=== PATIENT | female | born 1965 | race American Indian/Alaskan Native ===

== ENCOUNTER 2018-08-27 17:22 | Inpatient (IN) | payer MEDICARE ==
[2018-08-27] MEDS ORDERED: ZOFRAN IV ONE (18:07)
[2018-08-27] MEDS ORDERED: NACL 0.9% 1000 ML 1,000 ML IV ONE (18:07)
--- NOTE | 2018-08-27 18:14 | Emergency Department Report ---
Chief Complaint: Syncope Stated Complaint: BLACK OUTS Time Seen by Provider: 08/27/18 18:12 - HPI History of Present Illness: PT REPORTS BLACKING OUT ON SUNDAY- WAKING UP ON SUNDAY SHE WAS ON THE FLOOR OF HER HOME SHE THEN BLACKED OUT YESTERDAY AGAIN PMH HIV HTN ANXIETY DEPRESSION GERD RX ODEFSEY KLONOPIN NORVASC LOSARTAN HCTZ ROS LOC PER PT L SIDE AND R ABD PAIN N/V/D COUGH NO CP VSS WITH MILD TACHYCARDIA ON TRIAGE WILL NEED EVALUATION INCLUDING CT OF HEAD - Exam Vital Signs: Vital Signs 08/27/18 17:27 Temperature 98.2 F Pulse Rate 107 H Respiratory 18 Rate Blood Pressure 139/94 O2 Sat by Pulse 100 Oximetry MSE screening note: Focused history and physical exam performed. Due to findings the following was ordered: ED Disposition for MSE Condition: Stable
[2018-08-27 18:31] LABS: Hematocrit 34.9 % (30.3-42.9); Hemoglobin 11.9 gm/dl (10.1-14.3); Mean Corpuscular HGB Conc 34 % (30-34); Mean Corpuscular Volume 85 fl (79-97); Platelet Count 256 K/mm3 (140-440); Red Blood Count 4.12 M/mm3 (3.65-5.03); Red Cell Distribution Width 15.2 % (13.2-15.2)
[2018-08-27 18:52] LABS: Alanine Aminotransferase 18 units/L (7-56); Albumin 4.3 g/dL (3.9-5); BUN/Creatinine Ratio 21; Blood Urea Nitrogen 21 mg/dL (7-17); Calcium 9.5 mg/dL (8.4-10.2); Hemolysis Index 14
[2018-08-27 18:59] LABS: Bacteria,Urine 1+ /HPF (Negative); Bilirubin,Urine NEG (Negative); Blood,Urine NEG (Negative); Color,Urine Yellow (Yellow); Hyaline Casts,Urine 16 /LPF; Mucus,Urine 1+ /HPF; Protein,Urine <15 mg/dL mg/dL (Negative); Urobilinogen,Urine < 2.0 mg/dL (<2.0)
[2018-08-27 19:08] LABS: INR 0.88 (0.87-1.13)
[2018-08-27 19:25] LABS: Basophils % (Manual) 0 % (0.0-1.8); Eosinophils % (Manual) 0 % (0.0-4.3); Total Cells Counted 100
[2018-08-27 19:26] LABS: Hypochromasia Few; Platelet Estimate Consistent w Auto; Target Cells Few
[2018-08-27] MEDS ORDERED: PEPCID IV ONE (19:50)
[2018-08-27] MEDS ORDERED: K-DUR PO ONE (19:51)
[2018-08-27] MEDS ORDERED: SUBLIMAZE IV ONE (19:52)
--- NOTE | 2018-08-27 19:52 | Emergency Department Report ---
ED General Adult HPI - General Chief complaint: Syncope Stated complaint: BLACK OUTS Time Seen by Provider: 08/27/18 18:12 Source: patient, RN notes reviewed, old records reviewed Mode of arrival: Ambulatory Limitations: No Limitations - History of Present Illness Initial comments: Primary care Dr.: Dr. Almanza Past medical history: HIV, hypertension, does not know CD4 count or viral load, and is currently on highly active antiretroviral therapy. This is a pleasant 52-year-old female who is not known to this provider previously, also has a history of hepatitis C, presents to the ER with multiple complaints. Her first complaint is syncope 2. She reports that she passed out this past weekend, from Sunday to Sunday. She has no recollection of what happened during these few days. She reports that she was on the floor. She reports waking up on Sunday, and then again passing out. She also complains of bilateral upper flank pain, nausea and vomiting. Her last episode of emesis was earlier on today. Her symptoms are intermittent, did not radiate anywhere, did not appear to have exacerbating or factors. In the past week, she denies headache, neck pain, chest pain, hematemesis or bright red blood per rectum. She denies urinary symptoms. 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 She also reports that she feels like her balance has been "off." -: Gradual, Sudden Location: abdomen Consistency: other Improves with: other Worsens with: other Associated Symptoms: confusion, loss of appetite, malaise, nausea/vomiting, syncope. denies: chest pain, cough, diaphoresis, fever/chills, headaches, rash, seizure, shortness of breath, weakness - Related Data Home Medications Medication Instructions Recorded Confirmed Last Taken Emtricitab/Rilpiviri/Tenof Ala 1 each PO DAILY 08/27/18 08/27/18 Unknown [Odefsey Tablet] Ergocalciferol [Vitamin D2] 1 tab PO DAILY 08/27/18 08/27/18 Unknown Losartan [Cozaar] 100 mg PO QDAY 08/27/18 08/27/18 Unknown Potassium Chloride [Klor-Con 10] 1 tab PO DAILY 08/27/18 08/27/18 Unknown clonazePAM [Clonazepam] 1 tab PO BID PRN 08/27/18 08/27/18 Unknown Allergies Allergy/AdvReac Type Severity Reaction Status Date / Time ampicillin Allergy Hives Verified 08/27/18 17:27 shellfish derived Allergy Swelling Verified 08/27/18 17:27 ED Review of Systems ROS: Stated complaint: BLACK OUTS Other details as noted in HPI Constitutional: malaise, weakness. denies: fever Eyes: denies: eye discharge ENT: denies: epistaxis Respiratory: denies: cough Cardiovascular: syncope Gastrointestinal: abdominal pain, nausea, vomiting Genitourinary: denies: dysuria Musculoskeletal: arthralgia, myalgia Skin: denies: lesions Neurological: abnormal gait Psychiatric: anxiety ED Past Medical Hx - Past Medical History Hx Hypertension: Yes Hx HIV: Yes - Social History Smoking Status: Current Every Day Smoker Substance Use Type: Alcohol - Medications Home Medications: Home Medications Medication Instructions Recorded Confirmed Last Taken Type Emtricitab/Rilpiviri/Tenof Ala 1 each PO DAILY 08/27/18 08/27/18 Unknown History [Odefsey Tablet] Ergocalciferol [Vitamin D2] 1 tab PO DAILY 08/27/18 08/27/18 Unknown History Losartan [Cozaar] 100 mg PO QDAY 08/27/18 08/27/18 Unknown History Potassium Chloride [Klor-Con 10] 1 tab PO DAILY 08/27/18 08/27/18 Unknown History clonazePAM [Clonazepam] 1 tab PO BID PRN 08/27/18 08/27/18 Unknown History ED Physical Exam - General Limitations: Physical Limitation General appearance: alert, in no apparent distress - Head Head exam: Present: atraumatic, normocephalic - Eye Eye exam: Present: normal appearance, PERRL, EOMI, other (visual acuity intact to finger counting, color perception, reading at a close distance). Absent: nystagmus - ENT ENT exam: Present: normal exam, normal orophraynx, mucous membranes moist, normal external ear exam - Neck Neck exam: Present: normal inspection, full ROM. Absent: tenderness, meningismus - Respiratory Respiratory exam: Present: normal lung sounds bilaterally. Absent: respiratory distress - Cardiovascular Cardiovascular Exam: Present: normal rhythm, tachycardia, normal heart sounds. Absent: systolic murmur, diastolic murmur, rubs, gallop - GI/Abdominal GI/Abdominal exam: Present: soft, tenderness. Absent: distended, guarding, rebound, rigid, pulsatile mass - Extremities Exam Extremities exam: Present: normal inspection, full ROM. Absent: pedal edema, joint swelling, calf tenderness - Back Exam Back exam: Present: normal inspection, full ROM. Absent: tenderness, CVA tenderness (R), paraspinal tenderness, vertebral tenderness - Neurological Exam Neurological exam: Present: alert, oriented X3, CN II-XII intact, motor sensory deficit (there is 4 out of 5 strength left lower extremity. There is decreased sensation to light touch left lower extremity.) - Psychiatric Psychiatric exam: Present: normal affect, normal mood, anxious - Skin Skin exam: Present: warm, dry, intact, normal color. Absent: rash ED Course Vital Signs 08/27/18 08/27/18 08/27/18 17:27 20:10 21:26 Temperature 98.2 F 98.5 F Pulse Rate 107 H Respiratory 18 15 15 Rate Blood Pressure 139/94 Blood Pressure 150/97 [Left] O2 Sat by Pulse 100 100 Oximetry ED Medical Decision Making - Lab Data Result diagrams: 08/27/18 18:10 08/27/18 18:10 Vital Signs 08/27/18 08/27/18 08/27/18 17:27 20:10 21:26 Temperature 98.2 F 98.5 F Pulse Rate 107 H Respiratory 18 15 15 Rate Blood Pressure 139/94 Blood Pressure 150/97 [Left] O2 Sat by Pulse 100 100 Oximetry Lab Results 08/27/18 08/27/18 08/27/18 Range/Units 18:10 18:10 18:20 WBC 10.6 (4.5-11.0) K/mm3 RBC 4.12 (3.65-5.03) M/mm3 Hgb 11.9 (10.1-14.3) gm/dl Hct 34.9 (30.3-42.9) % MCV 85 (79-97) fl MCH 29 (28-32) pg MCHC 34 (30-34) % RDW 15.2 (13.2-15.2) % Plt Count 256 (140-440) K/mm3 Lymph # Pulp Drier Firer Add Manual Diff Complete Total Counted 100 Seg Neuts % (Manual) 46.0 (40.0-70.0) % Band Neutrophils % 0 % Lymphocytes % (Manual) 46.0 H (13.4-35.0) % Reactive Lymphs % (Man) 5.0 % Monocytes % (Manual) 3.0 (0.0-7.3) % Eosinophils % (Manual) 0 (0.0-4.3) % Basophils % (Manual) 0 (0.0-1.8) % Metamyelocytes % 0 % Myelocytes % 0 % Promyelocytes % 0 % Blast Cells % 0 % Nucleated RBC % Not Reportable Seg Neutrophils # Man 4.9 (1.8-7.7) K/mm3 Band Neutrophils # 0.0 K/mm3 Lymphocytes # (Manual) 4.9 (1.2-5.4) K/mm3 Abs React Lymphs (Man) 0.5 K/mm3 Monocytes # (Manual) 0.3 (0.0-0.8) K/mm3 Eosinophils # (Manual) 0.0 (0.0-0.4) K/mm3 Basophils # (Manual) 0.0 (0.0-0.1) K/mm3 Metamyelocytes # 0.0 K/mm3 Myelocytes # 0.0 K/mm3 Promyelocytes # 0.0 K/mm3 Blast Cells # 0.0 K/mm3 WBC Morphology Not Reportable Hypersegmented Neuts Not Reportable Hyposegmented Neuts Not Reportable Hypogranular Neuts Not Reportable Smudge Cells Not Reportable Toxic Granulation Not Reportable Toxic Vacuolation Not Reportable Dohle Bodies Not Reportable Pelger-Huet Anomaly Not Reportable Melissa Rods Not Reportable Platelet Estimate Consistent w auto Clumped Platelets Not Reportable Plt Clumps, EDTA Not Reportable Large Platelets Not Reportable Giant Platelets Not Reportable Platelet Satelliting Not Reportable Plt Morphology Comment Not Reportable RBC Morphology Not Reportable Dimorphic RBCs Not Reportable Polychromasia Not Reportable Hypochromasia Few Poikilocytosis Not Reportable Anisocytosis Not Reportable Microcytosis Not Reportable Macrocytosis Not Reportable Spherocytes Not Reportable Pappenheimer Bodies Not Reportable Sickle Cells Not Reportable Target Cells Few Tear Drop Cells Not Reportable Ovalocytes Not Reportable Helmet Cells Not Reportable Aden-[place] Bodies Not Reportable [place] Rings Not Reportable [place] Cells Not Reportable Bite Cells Not Reportable Crenated Cell Not Reportable Elliptocytes Not Reportable Acanthocytes (Spur) Not Reportable Rouleaux Not Reportable Hemoglobin C Crystals Not Reportable Schistocytes Not Reportable Malaria parasites Not Reportable Joseph Bodies Not Reportable Hem Pathologist Commnt No PT (12.2-14.9) Sec. INR (0.87-1.13) Sodium 140 (137-145) mmol/L Potassium 3.0 L (3.6-5.0) mmol/L Chloride 101.0 (98-107) mmol/L Carbon Dioxide 24 (22-30) mmol/L Anion Gap 18 mmol/L BUN 21 H (7-17) mg/dL Creatinine 1.0 (0.7-1.2) mg/dL Estimated GFR > 60 ml/min BUN/Creatinine Ratio 21 % Glucose 91 (65-100) mg/dL Calcium 9.5 (8.4-10.2) mg/dL Magnesium 1.80 (1.7-2.3) mg/dL Total Bilirubin 0.30 (0.1-1.2) mg/dL AST 15 (5-40) units/L ALT 18 (7-56) units/L Alkaline Phosphatase 99 (35-129) units/L Total Creatine Kinase 118 (30-135) units/L Troponin T < 0.010 (0.00-0.029) ng/mL Total Protein 7.9 (6.3-8.2) g/dL Albumin 4.3 (3.9-5) g/dL Albumin/Globulin Ratio 1.2 % Lipase 28 (13-60) units/L Urine Color Yellow (Yellow) Urine Turbidity Clear (Clear) Urine pH 6.0 (5.0-7.0) Ur Specific [place] 1.019 (1.003-1.030) Urine Protein <15 mg/dl (Negative) mg/dL Urine Glucose (UA) Neg (Negative) mg/dL Urine Ketones Neg (Negative) mg/dL Urine Blood Neg (Negative) Urine Nitrite Neg (Negative) Urine Bilirubin Neg (Negative) Urine Urobilinogen < 2.0 (<2.0) mg/dL Ur Leukocyte Esterase Neg (Negative) Urine WBC (Auto) 2.0 (0.0-6.0) /HPF Urine RBC (Auto) 3.0 (0.0-6.0) /HPF U Epithel Cells (Auto) 2.0 (0-13.0) /HPF Urine Bacteria (Auto) 1+ (Negative) /HPF Hyaline Casts 16 /LPF Urine Mucus 1+ /HPF 08/27/18 08/27/18 Range/Units 18:43 20:02 WBC (4.5-11.0) K/mm3 RBC (3.65-5.03) M/mm3 Hgb (10.1-14.3) gm/dl Hct (30.3-42.9) % MCV (79-97) fl MCH (28-32) pg MCHC (30-34) % RDW (13.2-15.2) % Plt Count (140-440) K/mm3 Lymph # Add Manual Diff Total Counted Seg Neuts % (Manual) (40.0-70.0) % Band Neutrophils % % Lymphocytes % (Manual) (13.4-35.0) % Reactive Lymphs % (Man) % Monocytes % (Manual) (0.0-7.3) % Eosinophils % (Manual) (0.0-4.3) % Basophils % (Manual) (0.0-1.8) % Metamyelocytes % % Myelocytes % % Promyelocytes % % Blast Cells % % Nucleated RBC % Seg Neutrophils # Man (1.8-7.7) K/mm3 Band Neutrophils # K/mm3 Lymphocytes # (Manual) (1.2-5.4) K/mm3 Abs React Lymphs (Man) K/mm3 Monocytes # (Manual) (0.0-0.8) K/mm3 Eosinophils # (Manual) (0.0-0.4) K/mm3 Basophils # (Manual) (0.0-0.1) K/mm3 Metamyelocytes # K/mm3 Myelocytes # K/mm3 Promyelocytes # K/mm3 Blast Cells # K/mm3 WBC Morphology Hypersegmented Neuts Hyposegmented Neuts Hypogranular Neuts Smudge Cells Toxic Granulation Toxic Vacuolation Dohle Bodies Pelger-Huet Anomaly Melissa Rods Platelet Estimate Clumped Platelets Plt Clumps, EDTA Large Platelets Giant Platelets Platelet Satelliting Plt Morphology Comment RBC Morphology Dimorphic RBCs Polychromasia Hypochromasia Poikilocytosis Anisocytosis Microcytosis Macrocytosis Spherocytes Pappenheimer Bodies Sickle Cells Target Cells Tear Drop Cells Ovalocytes Helmet Cells Aden-[place]minence Bodies [place] Rings [place] Cells Bite Cells Crenated Cell Elliptocytes Acanthocytes (Spur) Rouleaux Hemoglobin C Crystals Schistocytes Malaria parasites Joseph Bodies Hem Pathologist Commnt PT 12.3 (12.2-14.9) Sec. INR 0.88 (0.87-1.13) Sodium (137-145) mmol/L Potassium (3.6-5.0) mmol/L Chloride (98-107) mmol/L Carbon Dioxide (22-30) mmol/L Anion Gap mmol/L BUN (7-17) mg/dL Creatinine (0.7-1.2) mg/dL Estimated GFR ml/min BUN/Creatinine Ratio % Glucose (65-100) mg/dL Calcium (8.4-10.2) mg/dL Magnesium (1.7-2.3) mg/dL Total Bilirubin (0.1-1.2) mg/dL AST (5-40) units/L ALT (7-56) units/L Alkaline Phosphatase (35-129) units/L Total Creatine Kinase 114 (30-135) units/L Troponin T (0.00-0.029) ng/mL Total Protein (6.3-8.2) g/dL Albumin (3.9-5) g/dL Albumin/Globulin Ratio % Lipase (13-60) units/L Urine Color (Yellow) Urine Turbidity (Clear) Urine pH (5.0-7.0) Ur Specific [place] (1.003-1.030) Urine Protein (Negative) mg/dL Urine Glucose (UA) (Negative) mg/dL Urine Ketones (Negative) mg/dL Urine Blood (Negative) Urine Nitrite (Negative) Urine Bilirubin (Negative) Urine Urobilinogen (<2.0) mg/dL Ur Leukocyte Esterase (Negative) Urine WBC (Auto) (0.0-6.0) /HPF Urine RBC (Auto) (0.0-6.0) /HPF U Epithel Cells (Auto) (0-13.0) /HPF Urine Bacteria (Auto) (Negative) /HPF Hyaline Casts /LPF Urine Mucus /HPF - EKG Data -: EKG Interpreted by In EKG shows normal: sinus rhythm Rate: tachycardia - EKG Data When compared to previous EKG there are: previous EKG unavailable 08/27/18 22:27 Sinus tachycardia, 104 bpm, normal axis, QTC prolonged, poor R-wave progression, atrial enlargement, abnormal EKG, not consistent with ST elevation myocardial infarction. - Radiology Data Radiology results: pending, report reviewed, image reviewed Noncontrast CT scan of the brain negative for acute disease. Chronic findings noted. CT scan of the chest is negative. CT scan abdomen pelvis negative for acute disease. - Medical Decision Making Differential diagnosis, including but not limited to: Orthostasis, vagal event, structural cardiac disease, pulmonary embolus, acute coronary syndrome, electr olyte derangement, subacute stroke, intra-abdominal infection, obstruction, enteritis Assessment and plan: 52-year-old female who endorses syncope 2, is tachycardic, HIV-positive, with upper quadrant abdominal pain. Laboratory studies show hypokalemia, otherwise unremarkable. He is incidentally noted to have left leg weakness and numbness, and the patient does not know her last known well time. She is therefore not a TPA candidate. In addition, as she is not able to give her last known well time, and has undifferentiated syncope and abdominal pain, does not meet criteria for emergent CT angiogram to assess head and neck, but did require CT angiogram to exclude pulmonary embolus, as well as intra- abdominal pathology. No pulmonary embolus was identified, and CT scan of abdomen and pelvis was negative for acute disease. The patient was given potassium repletion, IV fluids, supportive care and control, and she will also be given aspirin. Case is presented to the Hospital physician, Dr. Ho, who accepted the patient for further evaluation for subacute stroke, as well as unexplained syncope. Critical care attestation.: If time is entered above; I have spent that time in minutes in the direct care of this critically ill patient, excluding procedure time. ED Disposition Clinical Impression: Syncope, Left leg weakness, Abdominal pain Disposition: [id number] OP ADMIT IP TO THIS HOSP Is pt being admited?: Yes Does the pt Need Aspirin: Yes Condition: Stable Instructions: Syncope (ED) Referrals: PRIMARY CARE, [Primary Care Provider] - 3-5 Days - Assessment Assessment Interval: Baseline - Level of Consciousness 1a. Level of Consciousness: alert/keenly responsive - LOC Questions 1b. LOC Questions: answers both correctly - LOC Command 1c. LOC Commands: performs tasks correctly - Best Gaze 2. Best Gaze: normal - Visual 3. Visual: no visual loss - Facial Palsy 4. Facial Palsy: normal symmetrical movement - Motor Arm 5b. Motor Arm Right: no drift 5a. Motor Arm Left: no drift - Motor Leg 6b. Motor Leg Right: no drift 6a. Motor Leg Left: some gravity effort - Limb Ataxia 7. Limb Ataxia: absent - Sensory 8. Sensory: mild/moderate sensory loss - Best Language 9. Best Language: no aphasia - Dysarthria 10. Dysarthria: normal - Extinction and Inattention 11. Extinction/Inattention: no abnormality - Scoring Total Score: 3 Stroke Severity: Minor Stroke
[2018-08-27] MEDS: KCL 10MEQ/100ML 10 MEQ/100 ML BAG IV SCH ×3 (21:00→23:46)
--- NOTE | 2018-08-27 21:16 | Cat Scan Report ---
FINAL REPORT PROCEDURE: CT head without contrast. TECHNIQUE: Computerized tomography of the head was performed without contrast material. HISTORY: Blackouts. COMPARISON: No prior studies are available for comparison. FINDINGS: The ventricles are normal in size. There is minimal evidence of chronic ischemic white matter disease . There is a small focal area of low attenuation located laterally in the left frontal lobe. This nick ws no mass-effect and is consistent with encephalomalacia. It suggests a previous stroke. Clinical co rrelation is recommended. There are no mass lesions. There is no intracranial hemorrhage. The calvari um appears intact. The mastoid air cells and paranasal sinuses are clear as far as visualized. IMPRESSION: Probable small area of encephalomalacia in the left frontal lobe consistent with an old stroke. Clini sita correlation recommended.
--- NOTE | 2018-08-27 21:31 | Cat Scan Report ---
FINAL REPORT PROCEDURE: CT angiogram chest with contrast. TECHNIQUE: Computerized tomographic angiography of the chest was performed after the IV injection of iodinated nonionic contrast including image processing. The image data was postprocessed using 2-dim ensional multiplanar reformatted (MPR) and 3-dimensional (MIP and/or volume rendered) techniques. HISTORY: Tachycardia, syncope. COMPARISON: No prior studies are available for comparison. FINDINGS: The trachea and central bronchi appear normal. The lungs are clear and well expanded. There are no pl eural effusions. The thoracic aorta has a normal caliber without evidence of dissection. The pulmonar y arteries enhance normally. There are no signs of pulmonary embolism. There is no mediastinal adenop athy. The heart size is normal. The adrenal glands are not enlarged. The thoracic skeleton appears in tact. IMPRESSION: Normal study.
--- NOTE | 2018-08-27 21:43 | Cat Scan Report ---
FINAL REPORT PROCEDURE: CT abdomen and pelvis with contrast. TECHNIQUE: Computerized axial tomography of the abdomen and pelvis was performed after the IV inject ion of iodinated nonionic contrast. HISTORY: Tachycardia, syncope, abdominal pain. COMPARISON: No prior studies are available for comparison. FINDINGS: The lung bases are clear. There are no pleural effusions. The heart size is normal. The liver, pancre as and spleen appear normal. There is probably a tiny cyst in the right lobe of the liver. Cholecyste ctomy clips are present. There is no biliary dilatation. The adrenal glands are not enlarged. Both ki dneys appear normal in size and configuration. The abdominal aorta has a normal caliber. There is no retroperitoneal adenopathy. The unopacified gastrointestinal tract is unremarkable. The appendix has probably been removed. The bladder is unremarkable. The uterus has been removed. The regional skeleto n appears intact. There is a tiny umbilical hernia containing fat. IMPRESSION: Previous cholecystectomy and hysterectomy. Probable previous appendectomy. No evidence of acute disea se in the abdomen or pelvis.
[2018-08-27] MEDS ORDERED: BABY ASPIRIN PO ONE (22:30)
[2018-08-27] MEDS ORDERED: TYLENOL PO PRN (23:11)
[2018-08-27] MEDS ORDERED: ZOFRAN IV PRN (23:11)
[2018-08-27] MEDS ORDERED: DULCOLAX PR PRN (23:11)
[2018-08-27] MEDS ORDERED: APRESOLINE IV PRN (23:11)
[2018-08-27] MEDS ORDERED: MILK OF MAGNESIA PO PRN (23:11)
[2018-08-27] MEDS ORDERED: SODIUM CHLORIDE FLUSH SYRINGE 10 ML IV PRN (23:11)
--- NOTE | 2018-08-27 23:15 | History and Physical Report ---
History of Present Illness Date of examination: 08/27/18 History of present illness: 52-year-old male with a history of schizophrenia, hypertension, depression, IBS, HIV, hepatitis C comes to the emergency room because she passed out on Sunday and did not wake up until Sunday. Patient states she was on her way into the kitchen when she passed out. Also complaining of left-sided weakness 2 weeks. Review of systems Constitutional: no weight loss, chills, fever Ears, eyes, nose, mouth and throat: no nasal congestion, no nasal discharge, no sinus pressure, no vision change, no red eye. Neck: No neck pain or rigidity. Cardiovascular: no palpitations, chest pain Respiratory: no cough, shortness of breath Gastrointestinal: no hematochezia, abdominal pain Genitourinary : no frequency , no hematuria Musculoskeletal: no joint swelling or muscle ache Integumentary: no rash, no pruritis Neurological: no parathesias Endocrine: no cold or heat intolerance, no polyuria or polydipsia Hematologic/Lymphatic: no easy bruising, no easy bleeding, no gland swelling Allergic/Immunologic: no urticaria, no angioedema. PAST MEDICAL HISTORY: schizophrenia, hypertension, depression, IBS, HIV, hepatitis C PAST SURGICAL HISTORY: Cholecystectomy, appendectomy, hysterectomy, sinus surge ry SOCIAL HISTORY: Denies drugs, +tobacco, +alcohol FAMILY HISTORY: Hypertension Medications and Allergies Allergies Allergy/AdvReac Type Severity Reaction Status Date / Time ampicillin Allergy Hives Verified 08/27/18 17:27 shellfish derived Allergy Swelling Verified 08/27/18 17:27 Home Medications Medication Instructions Recorded Confirmed Last Taken Type Emtricitab/Rilpiviri/Tenof Ala 1 each PO DAILY 08/27/18 08/27/18 Unknown History [Odefsey Tablet] Ergocalciferol [Vitamin D2] 1 tab PO DAILY 08/27/18 08/27/18 Unknown History Losartan [Cozaar] 100 mg PO QDAY 08/27/18 08/27/18 Unknown History Potassium Chloride [Klor-Con 10] 1 tab PO DAILY 08/27/18 08/27/18 Unknown History clonazePAM [Clonazepam] 1 tab PO BID PRN 08/27/18 08/27/18 Unknown History Active Meds: Active Medications Potassium Chloride (Kcl 10meq/100ml) 10 meq in 100 mls @ 100 mls/hr IV Q1H DARINEL Stop: 08/27/18 23:59 Last Admin: 08/27/18 22:11 Dose: 100 mls/hr Documented by: Exam - Physical Exam Narrative exam: General Apperance: The patient lying in bed, breathing comfortable HEENT: Normocephalic, atraumatic. Pupils equally round and reactive to light, EOMI, no sclericterus or JVD or thyromegaly or nodule. , no carotid bruit, mucous membranes moist, no exudate or erythema Heart: S1-S2, regular is rhythm Lungs: Clear to auscultation bilaterally, breathing comfortable Abdomen: Positive bowel sounds, soft, nontender, nondistended, no organomegaly Extremities: No edema cyanosis clubbing Skin: no rash, nodule, warm and dry Neuro: cranial nerves 2-12 intact, speech is fluent, motor on the left side, 4 over 5, otherwise intact, sensory intact - Constitutional Vitals: Temp Pulse Resp BP Pulse Ox 98.5 F 107 H 15 150/97 100 08/27/18 21:26 08/27/18 17:27 08/27/18 21:26 08/27/18 21:26 08/27/18 21:26 Results - Labs CBC & Chem 7: 08/27/18 18:10 08/27/18 18:10 Labs: Abnormal lab results 08/27/18 08/27/18 Range/Units 18:10 18:10 Lymphocytes % (Manual) 46.0 H (13.4-35.0) % Potassium 3.0 L (3.6-5.0) mmol/L BUN 21 H (7-17) mg/dL - Imaging and Cardiology CT scan - abdomen: report reviewed CT scan - chest: report reviewed CT Scan - head: report reviewed CT scan - pelvis: report reviewed Assessment and Plan Assessment Subacute CVA Syncope Hypertension Depression Schizophrenia HIV Hepatitis C Plan Admit to medicine Do neurochecks, obtain MRI, carotid Doppler, echo Check cardiac enzymes, utox, consult neurology, cardiology Consult physical and occupational therapy Start aspirin, statin IV hydralazine for blood pressure control DVT prophylaxis
[2018-08-27] MEDS ORDERED: KCL 10MEQ/100ML 10 MEQ/100 ML BAG IV ONE (23:46)
[2018-08-28 00:28] LABS: Creatine Kinase MB 1.7 ng/mL (0.0-4.0)
[2018-08-28] MEDS: AMBIEN PO PRN ×2 (01:59→21:10)
[2018-08-28] MEDS: KCL 10MEQ/100ML 10 MEQ/100 ML BAG IV SCH (02:12)
[2018-08-28 04:48] LABS: Amphetamine Screen,Urine PRESUMPTIVE NEGATIVE; Benzodiazepines Screen,Urine PRESUMPTIVE NEGATIVE; Methadone Screen,Urine PRESUMPTIVE NEGATIVE; Opiate Screen,Urine PRESUMPTIVE NEGATIVE
[2018-08-28 05:03] LABS: Cannabinoid Screen,Urine PRESUMPTIVE POSITIVE; Cocaine Screen,Urine PRESUMPTIVE POSITIVE
[2018-08-28 06:58] LABS: Creatine Kinase MB 1.7 ng/mL (0.0-4.0)
[2018-08-28 07:24] LABS: Chol/HDL Ratio 3.02 %
[2018-08-28] MEDS ORDERED: LOVENOX SUB-Q SCH (10:00)
[2018-08-28] MEDS ORDERED: VITAMIN D2 PO SCH (10:00)
[2018-08-28] MEDS ORDERED: NON-FORMULARY (Emtricitab/Rilpiviri/Tenof Ala [Odefsey Tablet] 1 EACH) PO SCH (10:00)
--- NOTE | 2018-08-28 10:14 | Vascular Lab Report ---
FINAL REPORT EXAM: VL CAROTID DUPLEX BILAT HISTORY: stroke TECHNIQUE: Carotid duplex Doppler ultrasound. PRIORS: None. FINDINGS: There are mild atherosclerotic changes bilaterally. There is no elevation in flow velocity indicate a hemodynamically significant stenosis. Specifically, findings correspond to stenosis of less than 50 percent. Vertebral artery flow is antegrade. IMPRESSION: Mild atherosclerotic findings. No findings of a hemodynamically significant stenosis.
--- NOTE | 2018-08-28 10:17 | Progress Note ---
Assessment and Plan Assessment and plan: Subacute CVA. CVA workup in progress. Continue aspirin and statin. Neurology consultation pending. PT/OT. CT scan of the head reveals small area of encephalomalacia in the left frontal lobe consistent with old CVA Syncope. Follow-up MRI, carotid Doppler and echocardiogram. Hypertension. Continue antihypertensive medications. HIV. Continue antiretrovirals Hepatitis C. Schizophrenia. Depression. Continue Klonopin History Interval history: No new issues overnight Hospitalist Physical - Constitutional Vitals: Temp Pulse Resp BP Pulse Ox 98.6 F 81 17 134/76 100 08/28/18 04:46 08/28/18 06:13 08/28/18 04:46 08/28/18 04:46 08/28/18 04:46 General appearance: Present: no acute distress, well-nourished - EENT Eyes: Present: PERRL, EOM intact ENT: hearing intact, clear oral mucosa, dentition normal - Neck Neck: Present: supple, normal ROM - Respiratory Respiratory effort: normal Respiratory: bilateral: CTA - Cardiovascular Rhythm: regular Heart Sounds: Present: S1 & S2. Absent: gallop, rub - Extremities Extremities: no ischemia, No edema, Full ROM - Abdominal General gastrointestinal: soft, non-tender, non-distended, normal bowel sounds - Integumentary Integumentary: Present: clear, warm, dry - Neurologic Neurologic: CNII-XII intact, moves all extremities Results - Labs CBC & Chem 7: 08/27/18 18:10 08/27/18 18:10 Labs: Laboratory Last Values WBC 10.6 K/mm3 (4.5-11.0) 08/27/18 18:10 RBC 4.12 M/mm3 (3.65-5.03) 08/27/18 18:10 Hgb 11.9 gm/dl (10.1-14.3) 08/27/18 18:10 Hct 34.9 % (30.3-42.9) 08/27/18 18:10 MCV 85 fl (79-97) 08/27/18 18:10 MCH 29 pg (28-32) 08/27/18 18:10 MCHC 34 % (30-34) 08/27/18 18:10 RDW 15.2 % (13.2-15.2) 08/27/18 18:10 Plt Count 256 K/mm3 (140-440) 08/27/18 18:10 Lymph # Feedmobile Driver 08/27/18 18:10 Add Manual Diff Complete 08/27/18 18:10 Total Counted 100 08/27/18 18:10 Seg Neuts % (Manual) 46.0 % (40.0-70.0) 08/27/18 18:10 Band Neutrophils % 0 % 08/27/18 18:10 Lymphocytes % (Manual) 46.0 % (13.4-35.0) H 08/27/18 18:10 Reactive Lymphs % (Man) 5.0 % 08/27/18 18:10 Monocytes % (Manual) 3.0 % (0.0-7.3) 08/27/18 18:10 Eosinophils % (Manual) 0 % (0.0-4.3) 08/27/18 18:10 Basophils % (Manual) 0 % (0.0-1.8) 08/27/18 18:10 Metamyelocytes % 0 % 08/27/18 18:10 Myelocytes % 0 % 08/27/18 18:10 Promyelocytes % 0 % 08/27/18 18:10 Blast Cells % 0 % 08/27/18 18:10 Nucleated RBC % Not Reportable 08/27/18 18:10 Seg Neutrophils # Man 4.9 K/mm3 (1.8-7.7) 08/27/18 18:10 Band Neutrophils # 0.0 K/mm3 08/27/18 18:10 Lymphocytes # (Manual) 4.9 K/mm3 (1.2-5.4) 08/27/18 18:10 Abs React Lymphs (Man) 0.5 K/mm3 08/27/18 18:10 Monocytes # (Manual) 0.3 K/mm3 (0.0-0.8) 08/27/18 18:10 Eosinophils # (Manual) 0.0 K/mm3 (0.0-0.4) 08/27/18 18:10 Basophils # (Manual) 0.0 K/mm3 (0.0-0.1) 08/27/18 18:10 Metamyelocytes # 0.0 K/mm3 08/27/18 18:10 Myelocytes # 0.0 K/mm3 08/27/18 18:10 Promyelocytes # 0.0 K/mm3 08/27/18 18:10 Blast Cells # 0.0 K/mm3 08/27/18 18:10 WBC Morphology Not Reportable 08/27/18 18:10 Hypersegmented Neuts Not Reportable 08/27/18 18:10 Hyposegmented Neuts Not Reportable 08/27/18 18:10 Hypogranular Neuts Not Reportable 08/27/18 18:10 Smudge Cells Not Reportable 08/27/18 18:10 Toxic Granulation Not Reportable 08/27/18 18:10 Toxic Vacuolation Not Reportable 08/27/18 18:10 Dohle Bodies Not Reportable 08/27/18 18:10 Pelger-Huet Anomaly Not Reportable 08/27/18 18:10 Melissa Rods Not Reportable 08/27/18 18:10 Platelet Estimate Consistent w auto 08/27/18 18:10 Clumped Platelets Not Reportable 08/27/18 18:10 Plt Clumps, EDTA Not Reportable 08/27/18 18:10 Large Platelets Not Reportable 08/27/18 18:10 Giant Platelets Not Reportable 08/27/18 18:10 Platelet Satelliting Not Reportable 08/27/18 18:10 Plt Morphology Comment Not Reportable 08/27/18 18:10 RBC Morphology Not Reportable 08/27/18 18:10 Dimorphic RBCs Not Reportable 08/27/18 18:10 Polychromasia Not Reportable 08/27/18 18:10 Hypochromasia Few 08/27/18 18:10 Poikilocytosis Not Reportable 08/27/18 18:10 Anisocytosis Not Reportable 08/27/18 18:10 Microcytosis Not Reportable 08/27/18 18:10 Macrocytosis Not Reportable 08/27/18 18:10 Spherocytes Not Reportable 08/27/18 18:10 Pappenheimer Bodies Not Reportable 08/27/18 18:10 Sickle Cells Not Reportable 08/27/18 18:10 Target Cells Few 08/27/18 18:10 Tear Drop Cells Not Reportable 08/27/18 18:10 Ovalocytes Not Reportable 08/27/18 18:10 Helmet Cells Not Reportable 08/27/18 18:10 [place] Bodies Not Reportable 08/27/18 18:10 Center Rings Not Reportable 08/27/18 18:10 [place] Cells Not Reportable 08/27/18 18:10 Bite Cells Not Reportable 08/27/18 18:10 Crenated Cell Not Reportable 08/27/18 18:10 Elliptocytes Not Reportable 08/27/18 18:10 Acanthocytes (Spur) Not Reportable 08/27/18 18:10 Rouleaux Not Reportable 08/27/18 18:10 Hemoglobin C Crystals Not Reportable 08/27/18 18:10 Schistocytes Not Reportable 08/27/18 18:10 Malaria parasites Not Reportable 08/27/18 18:10 Joseph Bodies Not Reportable 08/27/18 18:10 Hem Pathologist Commnt No 08/27/18 18:10 PT 12.3 Sec. (12.2-14.9) 08/27/18 18:43 INR 0.88 (0.87-1.13) 08/27/18 18:43 Sodium 140 mmol/L (137-145) 08/27/18 18:10 Potassium 3.0 mmol/L (3.6-5.0) L 08/27/18 18:10 Chloride 101.0 mmol/L (98-107) 08/27/18 18:10 Carbon Dioxide 24 mmol/L (22-30) 08/27/18 18:10 Anion Gap 18 mmol/L 08/27/18 18:10 BUN 21 mg/dL (7-17) H 08/27/18 18:10 Creatinine 1.0 mg/dL (0.7-1.2) 08/27/18 18:10 Estimated GFR > 60 ml/min 08/27/18 18:10 BUN/Creatinine Ratio 21 % 08/27/18 18:10 Glucose 91 mg/dL (65-100) 08/27/18 18:10 Calcium 9.5 mg/dL (8.4-10.2) 08/27/18 18:10 Magnesium 1.80 mg/dL (1.7-2.3) 08/27/18 18:10 Total Bilirubin 0.30 mg/dL (0.1-1.2) 08/27/18 18:10 AST 15 units/L (5-40) 08/27/18 18:10 ALT 18 units/L (7-56) 08/27/18 18:10 Alkaline Phosphatase 99 units/L (35-129) 08/27/18 18:10 Total Creatine Kinase 105 units/L (30-135) 08/28/18 05:46 CK-MB (CK-2) 1.7 ng/mL (0.0-4.0) 08/28/18 05:46 CK-MB (CK-2) Rel Index 1.6 (0-4) 08/28/18 05:46 Troponin T < 0.010 ng/mL (0.00-0.029) 08/28/18 05:46 Total Protein 7.9 g/dL (6.3-8.2) 08/27/18 18:10 Albumin 4.3 g/dL (3.9-5) 08/27/18 18:10 Albumin/Globulin Ratio 1.2 % 08/27/18 18:10 Triglycerides 110 mg/dL (2-149) 08/28/18 05:46 Cholesterol 139 mg/dL (50-199) 08/28/18 05:46 LDL Cholesterol Direct 89 mg/dL (50-130) 08/28/18 05:46 HDL Cholesterol 46 mg/dL (40-59) 08/28/18 05:46 Cholesterol/HDL Ratio 3.02 % 08/28/18 05:46 Lipase 28 units/L (13-60) 08/27/18 18:10 Urine Color Yellow (Yellow) 08/27/18 18:20 Urine Turbidity Clear (Clear) 08/27/18 18:20 Urine pH 6.0 (5.0-7.0) 08/27/18 18:20 Ur Specific [place] 1.019 (1.003-1.030) 08/27/18 18:20 Urine Protein <15 mg/dl mg/dL (Negative) 08/27/18 18:20 Urine Glucose (UA) Neg mg/dL (Negative) 08/27/18 18:20 Urine Ketones Neg mg/dL (Negative) 08/27/18 18:20 Urine Blood Neg (Negative) 08/27/18 18:20 Urine Nitrite Neg (Negative) 08/27/18 18:20 Urine Bilirubin Neg (Negative) 08/27/18 18:20 Urine Urobilinogen < 2.0 mg/dL (<2.0) 08/27/18 18:20 Ur Leukocyte Esterase Neg (Negative) 08/27/18 18:20 Urine WBC (Auto) 2.0 /HPF (0.0-6.0) 08/27/18 18:20 Urine RBC (Auto) 3.0 /HPF (0.0-6.0) 08/27/18 18:20 U Epithel Cells (Auto) 2.0 /HPF (0-13.0) 08/27/18 18:20 Urine Bacteria (Auto) 1+ /HPF (Negative) 08/27/18 18:20 Hyaline Casts 16 /LPF 08/27/18 18:20 Urine Mucus 1+ /HPF 08/27/18 18:20 Urine Opiates Screen Presumptive negative 08/28/18 04:30 Urine Methadone Screen Presumptive negative 08/28/18 04:30 Ur Barbiturates Screen Presumptive negative 08/28/18 04:30 Ur Phencyclidine Scrn Presumptive negative 08/28/18 04:30 Ur Amphetamines Screen Presumptive negative 08/28/18 04:30 U Benzodiazepines Scrn Presumptive negative 08/28/18 04:30 Urine Cocaine Screen Presumptive positive 08/28/18 04:30 U Marijuana (THC) Screen Presumptive positive 08/28/18 04:30 Drugs of Abuse Note Disclamer 08/28/18 04:30
--- NOTE | 2018-08-28 11:35 | Consultation ---
History of Present Illness Consult date: 08/28/18 Requesting physician: RICHARD GARNETT Consult reason: syncope History of present illness: The patient is a 52 year old female with a history of schizophrenia, depression, hypertension, HIV, hepatitis C who presented with complaints of recent syncope x 2. She states the first episode occurred 2-3 weeks ago and that she passed out for 2 days. She also passed out this past Sunday to Sunday and has no recollection of what happened during these few days. Additionally, she states that about one week ago she experienced transient left sided weakness. She denies any chest pain, palpitations or shortness of breath. She admits to smoking marijuana 2-3x/week but denies any other drug use although UDS positive for cocaine and marijuana. Troponin negative x 3. Past History Past Medical History: hepatitis (hepatitis C), HIV/AIDS, hypertension, other (schizophrenia, depression ) Past Surgical History: Other (Cholecystectomy, appendectomy, hysterectomy, sinus surgery) Social history: smoking (marijuana 2-3x/week), other (works as a nanny) Medications and Allergies Allergies Allergy/AdvReac Type Severity Reaction Status Date / Time ampicillin Allergy Hives Verified 08/27/18 17:27 shellfish derived Allergy Swelling Verified 08/27/18 17:27 Home Medications Medication Instructions Recorded Confirmed Last Taken Type Emtricitab/Rilpiviri/Tenof Ala 1 each PO DAILY 08/27/18 08/27/18 Unknown History [Odefsey Tablet] Ergocalciferol [Vitamin D2] 1 tab PO DAILY 08/27/18 08/27/18 Unknown History Losartan [Cozaar] 100 mg PO QDAY 08/27/18 08/27/18 Unknown History Potassium Chloride [Klor-Con 10] 1 tab PO DAILY 08/27/18 08/27/18 Unknown History clonazePAM [Clonazepam] 1 tab PO BID PRN 08/27/18 08/27/18 Unknown History Active Meds: Active Medications Acetaminophen (Tylenol) 650 mg PO Q4H PRN PRN Reason: Pain, Mild (1-3) Aspirin (Aspirin) 325 mg PO QDAY DARINEL Bisacodyl (Dulcolax) 10 mg MN QDAY PRN PRN Reason: Constipation Clonazepam (Klonopin) 0.5 mg PO BID PRN PRN Reason: Anxiety Enoxaparin Sodium (Lovenox) 40 mg SUB-Q QDAY@1000 [facility] Ergocalciferol (Vitamin D2) 50,000 unit PO We DARINEL Hydralazine HCl (Apresoline) 5 mg IV Q6H PRN PRN Reason: Keep SBP between 160-185 mm Hg Magnesium Hydroxide (Milk Of Magnesia) 30 ml PO Q4H PRN PRN Reason: Constipation Miscellaneous Medication (Emtricitab/Rilpiviri/Tenof Ala [Odefsey Tablet]) 1 each PO DAILY [facility] Ondansetron HCl (Zofran) 4 mg IV Q8H PRN PRN Reason: Nausea And Vomiting Pneumococcal Polyvalent Vaccine (Pneumovax 23) 0.5 ml IM .ONCE ONE Stop: 08/28/18 12:01 Sodium Chloride (Sodium Chloride Flush Syringe 10 Ml) 10 ml IV PRN PRN PRN Reason: LINE FLUSH Zolpidem Tartrate (Ambien) 5 mg PO QHS PRN PRN Reason: Sleep Last Admin: 08/28/18 01:59 Dose: 5 mg Documented by: Review of Systems Constitutional: no fever, no chills Ears, nose, mouth and throat: no nasal congestion, no nasal discharge, no sinus pressure Cardiovascular: no chest pain, no palpitations, no shortness of breath, no dyspnea on exertion Respiratory: no cough, no congestion, no wheezing Gastrointestinal: no nausea, no vomiting, no diarrhea Genitourinary Female: no dysuria, no urinary frequency Musculoskeletal: no neck stiffness, no neck pain Integumentary: no rash, no pruritis Neurological: weakness (transient left sided weakness), syncope Endocrine: no cold intolerance, no heat intolerance Hematologic/Lymphatic: no easy bruising, no easy bleeding Allergic/Immunologic: no urticaria, no wheezing Physical Examination Vital Signs Temp Pulse Resp BP Pulse Ox 98.2 F 107 H 18 139/94 100 08/27/18 17:27 08/27/18 17:27 08/27/18 17:27 08/27/18 17:27 08/27/18 17:27 General appearance: no acute distress HEENT: Positive: PERRL, Normocephaly, Mucus Membranes Moist Neck: Positive: neck supple, trachea midline Cardiac: Positive: Regular Rate, S1/S2 Lungs: Positive: clear to auscultation Neuro: Positive: Grossly Intact Abdomen: Positive: Soft, Active Bowel Sounds. Negative: Tender Skin: Positive: Clear. Negative: Rash Extremities: Present: normal. Absent: edema Results 08/27/18 18:10 08/27/18 18:10 Cardiac Enzymes 08/27/18 08/27/18 08/28/18 Range/Units 18:10 23:43 05:46 AST 15 (5-40) units/L CK-MB (CK-2) 1.7 1.7 (0.0-4.0) ng/mL Coagulation 08/27/18 Range/Units 18:43 PT 12.3 (12.2-14.9) Sec. INR 0.88 (0.87-1.13) Lipids 08/28/18 Range/Units 05:46 Triglycerides 110 (2-149) mg/dL Cholesterol 139 (50-199) mg/dL HDL Cholesterol 46 (40-59) mg/dL Cholesterol/HDL Ratio 3.02 % CBC 08/27/18 Range/Units 18:10 WBC 10.6 (4.5-11.0) K/mm3 RBC 4.12 (3.65-5.03) M/mm3 Hgb 11.9 (10.1-14.3) gm/dl Hct 34.9 (30.3-42.9) % Plt Count 256 (140-440) K/mm3 Lymph # Technical Support Director Comprehensive Metabolic Panel 08/27/18 Range/Units 18:10 Sodium 140 (137-145) mmol/L Potassium 3.0 L (3.6-5.0) mmol/L Chloride 101.0 (98-107) mmol/L Carbon Dioxide 24 (22-30) mmol/L BUN 21 H (7-17) mg/dL Creatinine 1.0 (0.7-1.2) mg/dL Glucose 91 (65-100) mg/dL Calcium 9.5 (8.4-10.2) mg/dL AST 15 (5-40) units/L ALT 18 (7-56) units/L Alkaline Phosphatase 99 (35-129) units/L Total Protein 7.9 (6.3-8.2) g/dL Albumin 4.3 (3.9-5) g/dL - Imaging and Cardiology Echo: pending EKG: image reviewed EKG interpretations - Telemetry EKG Rhythm: Sinus Tachycardia - EKG Sinus rhythms and dysrhythmias: sinus tachycardia Assessment and Plan Assessment: Syncope x 2 Transient left sided weakness Hypertension HIV Hepatitis C Schizophrenia Depression Marijuana/cocaine abuse Plan: Await echo findings. Will continue to observe on telemetry. Await MRI findings and neuro recommendations. The patient has been seen in conjunction with Dr. Mays who agrees with the asse ssment and plan of care.
[2018-08-28] MEDS ORDERED: PNEUMOVAX 23 IM ONE (12:00)
--- NOTE | 2018-08-28 12:17 | Magnetic Resonance Report ---
MRI BRAIN WITHOUT CONTRAST: 08/28/18 CLINICAL: Stroke. COMPARISON: CT head 08/27/18 TECHNIQUE: Axial diffusion, T1, T2, gradient echo T2*, coronal and axial FLAIR and sagittal T1 sequences on a 1.5 Alana magnet. FINDINGS: The ventricles and sulci are slightly large for age. No restricted diffusion. A small area of encephalomalacia in the inferior left frontal lobe and a small area of encephalomalacia in the superior right cerebellar hemisphere. Moderate bilateral frontoparietal multifocal subcortical white matter hyperintensities on FLAIR and T2. Necrotic microbleeds on the gradient echo sequence. No mass or mass effect. No hemorrhage, edema or extra-axial collection. Normal pituitary and optic chiasm. The brainstem is normal. Intact vascular flow voids. Normal sinuses. The orbits, and soft tissues are normal. Normal calvarium and skull base. IMPRESSION: 1. No evidence of acute/subacute infarct or hemorrhage. 2. Small chronic left frontal lobe and right cerebellar infarcts. 3. Moderate bilateral multifocal chronic white matter microangiopathy. 4. Mild global cortical atrophy.
[2018-08-28] MEDS: LOVENOX SUB-Q SCH (12:54)
[2018-08-28] MEDS: ASPIRIN PO SCH (12:54)
[2018-08-29 06:18] LABS: Basophils % (Auto) 0.7 % (0.0-1.8); Eosinophils # (Auto) 0.1 K/mm3 (0.0-0.4); Eosinophils % (Auto) 1.5 % (0.0-4.3); Hematocrit 37.7 % (30.3-42.9); Hemoglobin 12.3 gm/dl (10.1-14.3); Lymphocytes # (Auto) 3.3 K/mm3 (1.2-5.4); Lymphocytes % (Auto) 51.8 % (13.4-35.0); Mean Corpuscular HGB Conc 33 % (30-34); Mean Corpuscular Volume 87 fl (79-97); Monocytes # (Auto) 0.4 K/mm3 (0.0-0.8); Monocytes % (Auto) 5.7 % (0.0-7.3); Platelet Count 218 K/mm3 (140-440); Red Blood Count 4.35 M/mm3 (3.65-5.03)
[2018-08-29 06:34] LABS: BUN/Creatinine Ratio 23; Blood Urea Nitrogen 14 mg/dL (7-17); Calcium 9.3 mg/dL (8.4-10.2); Hemolysis Index 58
[2018-08-29] MEDS: LOVENOX SUB-Q SCH (10:22)
[2018-08-29] MEDS: ASPIRIN PO SCH ×2 (10:22→10:25)
--- NOTE | 2018-08-29 11:03 | Progress Note ---
Assessment and Plan Assessment: Syncope x 2 Transient left sided weakness Hypertension HIV Hepatitis C Schizophrenia Depression Marijuana/cocaine abuse Plan: Echo reviewed - EF 50-55%, mild MR, mild TR. Brain MRI with NAF, carotid studies with no sig findings, orthostatics unremarkable, no arrhythmias on telemetry. Currently stable cardiac status. Pt may discharge home from cardiology standpoint. Cessation of illicit drug use encouraged. The patient has been seen in conjunction with Dr. Ranjana Mays who agrees with the assessment and plan of care. Subjective Date of service: 08/29/18 Principal diagnosis: syncope Interval history: pt resting in bed, no current cardiac complaints. tele reviewed - no arrhythmias noted. Objective Last Vital Signs Temp 97.6 F 08/29/18 07:56 Pulse 74 08/29/18 07:56 Resp 16 08/29/18 07:56 BP 127/79 08/29/18 07:56 Pulse Ox 100 08/29/18 07:56 - Physical Examination General: No Apparent Distress HEENT: Positive: PERRL, Normocephaly, Mucus Membranes Moist Neck: Positive: neck supple, trachea midline Cardiac: Positive: Reg Rate and Rhythm, S1/S2 Lungs: Positive: clear to auscultation Neuro: Positive: Grossly Intact Abdomen: Positive: Soft, Active Bowel Sounds. Negative: Tender Skin: Positive: Clear. Negative: Rash Extremities: Present: normal. Absent: edema - Labs and Meds CBC 08/29/18 Range/Units 05:43 WBC 6.4 (4.5-11.0) K/mm3 RBC 4.35 (3.65-5.03) M/mm3 Hgb 12.3 (10.1-14.3) gm/dl Hct 37.7 (30.3-42.9) % Plt Count 218 (140-440) K/mm3 Lymph # 3.3 (1.2-5.4) K/mm3 [place] # 0.4 (0.0-0.8) K/mm3 Eos # 0.1 (0.0-0.4) K/mm3 Baso # 0.0 (0.0-0.1) K/mm3 Comprehensive Metabolic Panel 08/29/18 Range/Units 05:43 Sodium 141 (137-145) mmol/L Potassium 4.2 D (3.6-5.0) mmol/L Chloride 103.7 (98-107) mmol/L Carbon Dioxide 22 (22-30) mmol/L BUN 14 (7-17) mg/dL Creatinine 0.6 L (0.7-1.2) mg/dL Glucose 100 (65-100) mg/dL Calcium 9.3 (8.4-10.2) mg/dL - Imaging and Cardiology EKG: image reviewed Echo: pending - EKG Sinus rhythms and dysrhythmias: sinus tachycardia
--- NOTE | 2018-08-29 12:37 | Progress Note ---
Assessment and Plan Assessment and plan: History of CVA. MRI reveals no evidence of acute/subacute infarct or hemorrhage. Small chronic left frontal lobe and right cerebral infarcts. Continue aspirin and statin. CT scan of the head reveals small area of encephalomalacia in the left frontal lobe consistent with old CVA. Syncope. Echo reveals EF 50-55%, mild MR, mild TR. Brain MRI with NAF, carotid studies with no sig findings, orthostatics unremarkable, no arrhythmias on telemetry. Hypertension. Continue antihypertensive medications. HIV. Continue antiretrovirals Hepatitis C. Schizophrenia. Depression. Continue Klonopin History Interval history: No new issues overnight Hospitalist Physical - Constitutional Vitals: Temp Pulse Resp BP Pulse Ox 97.6 F 74 16 127/79 100 08/29/18 07:56 08/29/18 07:56 08/29/18 07:56 08/29/18 07:56 08/29/18 07:56 General appearance: Present: no acute distress - EENT Eyes: Present: PERRL, EOM intact ENT: hearing intact, clear oral mucosa, dentition normal - Neck Neck: Present: supple, normal ROM - Respiratory Respiratory effort: normal Respiratory: bilateral: CTA - Cardiovascular Rhythm: regular Heart Sounds: Present: S1 & S2. Absent: gallop, rub - Extremities Extremities: no ischemia, No edema, Full ROM - Abdominal General gastrointestinal: soft, non-tender, non-distended, normal bowel sounds - Integumentary Integumentary: Present: clear, warm, dry - Neurologic Neurologic: CNII-XII intact, moves all extremities Results - Labs CBC & Chem 7: 08/29/18 05:43 08/29/18 05:43 Labs: Laboratory Last Values WBC 6.4 K/mm3 (4.5-11.0) 08/29/18 05:43 RBC 4.35 M/mm3 (3.65-5.03) 08/29/18 05:43 Hgb 12.3 gm/dl (10.1-14.3) 08/29/18 05:43 Hct 37.7 % (30.3-42.9) 08/29/18 05:43 MCV 87 fl (79-97) 08/29/18 05:43 MCH 28 pg (28-32) 08/29/18 05:43 MCHC 33 % (30-34) 08/29/18 05:43 RDW 15.0 % (13.2-15.2) 08/29/18 05:43 Plt Count 218 K/mm3 (140-440) 08/29/18 05:43 Lymph % (Auto) 51.8 % (13.4-35.0) H 08/29/18 05:43 Petroleum % (Auto) 5.7 % (0.0-7.3) 08/29/18 05:43 Eos % (Auto) 1.5 % (0.0-4.3) 08/29/18 05:43 Baso % (Auto) 0.7 % (0.0-1.8) 08/29/18 05:43 Lymph # 3.3 K/mm3 (1.2-5.4) 08/29/18 05:43 Petroleum # 0.4 K/mm3 (0.0-0.8) 08/29/18 05:43 Eos # 0.1 K/mm3 (0.0-0.4) 08/29/18 05:43 Baso # 0.0 K/mm3 (0.0-0.1) 08/29/18 05:43 Add Manual Diff Complete 08/27/18 18:10 Total Counted 100 08/27/18 18:10 Seg Neutrophils % 40.3 % (40.0-70.0) 08/29/18 05:43 Seg Neuts % (Manual) 46.0 % (40.0-70.0) 08/27/18 18:10 Band Neutrophils % 0 % 08/27/18 18:10 Lymphocytes % (Manual) 46.0 % (13.4-35.0) H 08/27/18 18:10 Reactive Lymphs % (Man) 5.0 % 08/27/18 18:10 Monocytes % (Manual) 3.0 % (0.0-7.3) 08/27/18 18:10 Eosinophils % (Manual) 0 % (0.0-4.3) 08/27/18 18:10 Basophils % (Manual) 0 % (0.0-1.8) 08/27/18 18:10 Metamyelocytes % 0 % 08/27/18 18:10 Myelocytes % 0 % 08/27/18 18:10 Promyelocytes % 0 % 08/27/18 18:10 Blast Cells % 0 % 08/27/18 18:10 Nucleated RBC % Not Reportable 08/27/18 18:10 Seg Neutrophils # 2.6 K/mm3 (1.8-7.7) 08/29/18 05:43 Seg Neutrophils # Man 4.9 K/mm3 (1.8-7.7) 08/27/18 18:10 Band Neutrophils # 0.0 K/mm3 08/27/18 18:10 Lymphocytes # (Manual) 4.9 K/mm3 (1.2-5.4) 08/27/18 18:10 Abs React Lymphs (Man) 0.5 K/mm3 08/27/18 18:10 Monocytes # (Manual) 0.3 K/mm3 (0.0-0.8) 08/27/18 18:10 Eosinophils # (Manual) 0.0 K/mm3 (0.0-0.4) 08/27/18 18:10 Basophils # (Manual) 0.0 K/mm3 (0.0-0.1) 08/27/18 18:10 Metamyelocytes # 0.0 K/mm3 08/27/18 18:10 Myelocytes # 0.0 K/mm3 08/27/18 18:10 Promyelocytes # 0.0 K/mm3 08/27/18 18:10 Blast Cells # 0.0 K/mm3 08/27/18 18:10 WBC Morphology Not Reportable 08/27/18 18:10 Hypersegmented Neuts Not Reportable 08/27/18 18:10 Hyposegmented Neuts Not Reportable 08/27/18 18:10 Hypogranular Neuts Not Reportable 08/27/18 18:10 Smudge Cells Not Reportable 08/27/18 18:10 Toxic Granulation Not Reportable 08/27/18 18:10 Toxic Vacuolation Not Reportable 08/27/18 18:10 Dohle Bodies Not Reportable 08/27/18 18:10 Pelger-Huet Anomaly Not Reportable 08/27/18 18:10 Melissa Rods Not Reportable 08/27/18 18:10 Platelet Estimate Consistent w auto 08/27/18 18:10 Clumped Platelets Not Reportable 08/27/18 18:10 Plt Clumps, EDTA Not Reportable 08/27/18 18:10 Large Platelets Not Reportable 08/27/18 18:10 Giant Platelets Not Reportable 08/27/18 18:10 Platelet Satelliting Not Reportable 08/27/18 18:10 Plt Morphology Comment Not Reportable 08/27/18 18:10 RBC Morphology Not Reportable 08/27/18 18:10 Dimorphic RBCs Not Reportable 08/27/18 18:10 Polychromasia Not Reportable 08/27/18 18:10 Hypochromasia Few 08/27/18 18:10 Poikilocytosis Not Reportable 08/27/18 18:10 Anisocytosis Not Reportable 08/27/18 18:10 Microcytosis Not Reportable 08/27/18 18:10 Macrocytosis Not Reportable 08/27/18 18:10 Spherocytes Not Reportable 08/27/18 18:10 Pappenheimer Bodies Not Reportable 08/27/18 18:10 Sickle Cells Not Reportable 08/27/18 18:10 Target Cells Few 08/27/18 18:10 Tear Drop Cells Not Reportable 08/27/18 18:10 Ovalocytes Not Reportable 08/27/18 18:10 Helmet Cells Not Reportable 08/27/18 18:10 [place] Bodies Not Reportable 08/27/18 18:10 [place] Rings Not Reportable 08/27/18 18:10 Emiliano Cells Not Reportable 08/27/18 18:10 Bite Cells Not Reportable 08/27/18 18:10 Crenated Cell Not Reportable 08/27/18 18:10 Elliptocytes Not Reportable 08/27/18 18:10 Acanthocytes (Spur) Not Reportable 08/27/18 18:10 Rouleaux Not Reportable 08/27/18 18:10 Hemoglobin C Crystals Not Reportable 08/27/18 18:10 Schistocytes Not Reportable 08/27/18 18:10 Malaria parasites Not Reportable 08/27/18 18:10 Joseph Bodies Not Reportable 08/27/18 18:10 Hem Pathologist Commnt No 08/27/18 18:10 PT 12.3 Sec. (12.2-14.9) 08/27/18 18:43 INR 0.88 (0.87-1.13) 08/27/18 18:43 Sodium 141 mmol/L (137-145) 08/29/18 05:43 Potassium 4.2 mmol/L (3.6-5.0) D 08/29/18 05:43 Chloride 103.7 mmol/L (98-107) 08/29/18 05:43 Carbon Dioxide 22 mmol/L (22-30) 08/29/18 05:43 Anion Gap 20 mmol/L 08/29/18 05:43 BUN 14 mg/dL (7-17) 08/29/18 05:43 Creatinine 0.6 mg/dL (0.7-1.2) L 08/29/18 05:43 Estimated GFR > 60 ml/min 08/29/18 05:43 BUN/Creatinine Ratio 23 % 08/29/18 05:43 Glucose 100 mg/dL (65-100) 08/29/18 05:43 Calcium 9.3 mg/dL (8.4-10.2) 08/29/18 05:43 Magnesium 1.80 mg/dL (1.7-2.3) 08/27/18 18:10 Total Bilirubin 0.30 mg/dL (0.1-1.2) 08/27/18 18:10 AST 15 units/L (5-40) 08/27/18 18:10 ALT 18 units/L (7-56) 08/27/18 18:10 Alkaline Phosphatase 99 units/L (35-129) 08/27/18 18:10 Total Creatine Kinase 105 units/L (30-135) 08/28/18 05:46 CK-MB (CK-2) 1.7 ng/mL (0.0-4.0) 08/28/18 05:46 CK-MB (CK-2) Rel Index 1.6 (0-4) 08/28/18 05:46 Troponin T < 0.010 ng/mL (0.00-0.029) 08/28/18 05:46 Total Protein 7.9 g/dL (6.3-8.2) 08/27/18 18:10 Albumin 4.3 g/dL (3.9-5) 08/27/18 18:10 Albumin/Globulin Ratio 1.2 % 08/27/18 18:10 Triglycerides 110 mg/dL (2-149) 08/28/18 05:46 Cholesterol 139 mg/dL (50-199) 08/28/18 05:46 LDL Cholesterol Direct 89 mg/dL (50-130) 08/28/18 05:46 HDL Cholesterol 46 mg/dL (40-59) 08/28/18 05:46 Cholesterol/HDL Ratio 3.02 % 08/28/18 05:46 Lipase 28 units/L (13-60) 08/27/18 18:10 Urine Color Yellow (Yellow) 08/27/18 18:20 Urine Turbidity Clear (Clear) 08/27/18 18:20 Urine pH 6.0 (5.0-7.0) 08/27/18 18:20 Ur Specific Leon 1.019 (1.003-1.030) 08/27/18 18:20 Urine Protein <15 mg/dl mg/dL (Negative) 08/27/18 18:20 Urine Glucose (UA) Neg mg/dL (Negative) 08/27/18 18:20 Urine Ketones Neg mg/dL (Negative) 08/27/18 18:20 Urine Blood Neg (Negative) 08/27/18 18:20 Urine Nitrite Neg (Negative) 08/27/18 18:20 Urine Bilirubin Neg (Negative) 08/27/18 18:20 Urine Urobilinogen < 2.0 mg/dL (<2.0) 08/27/18 18:20 Ur Leukocyte Esterase Neg (Negative) 08/27/18 18:20 Urine WBC (Auto) 2.0 /HPF (0.0-6.0) 08/27/18 18:20 Urine RBC (Auto) 3.0 /HPF (0.0-6.0) 08/27/18 18:20 U Epithel Cells (Auto) 2.0 /HPF (0-13.0) 08/27/18 18:20 Urine Bacteria (Auto) 1+ /HPF (Negative) 08/27/18 18:20 Hyaline Casts 16 /LPF 08/27/18 18:20 Urine Mucus 1+ /HPF 08/27/18 18:20 Urine Opiates Screen Presumptive negative 08/28/18 04:30 Urine Methadone Screen Presumptive negative 08/28/18 04:30 Ur Barbiturates Screen Presumptive negative 08/28/18 04:30 Ur Phencyclidine Scrn Presumptive negative 08/28/18 04:30 Ur Amphetamines Screen Presumptive negative 08/28/18 04:30 U Benzodiazepines Scrn Presumptive negative 08/28/18 04:30 Urine Cocaine Screen Presumptive positive 08/28/18 04:30 U Marijuana (THC) Screen Presumptive positive 08/28/18 04:30 Drugs of Abuse Note Disclamer 08/28/18 04:30
[2018-08-29 12:45] VITALS: BP 125/76
--- NOTE | 2018-08-29 15:05 | Query- Syncope ---
Leonardo Alvarenga___Dev Date:__08/29/2018 [employer]/MIKE:__Saritha Phone#:___[phone] Exercise your independent professional judgment when responding to query. Questions asked do not imply a particular answer is desired or expected. We greatly appreciate your clarification on this issue. Clinical Documentation States: 52-year-old female complaint is syncope 2. She reports that she passed out this past weekend, from Sunday to Sunday. She has no recollection of what happened during these few days. She reports that she was on the floor. She reports waking up on Sunday, and then again passing out. Assessment and plan: Syncope. Echo reveals EF 50-55%, mild MR, mild TR. Brain MRI with NAF, carotid studies with no sig findings, orthostatics unremarkable, no arrhythmias on telemetry. Please specify the cause as: [ ] Autonomic Imbalance [ ] Dialysis disequilibrium syndrome [ ] Hypotension [ ] Shock [ ] Psychogenic [x ] Unable to Determine [ ] Other: Present on Admission: [x ] Yes (Y) [ ] Clinically undeterminable (W) [ ] No (N) Please also document response in your Progress Notes and/or Discharge Summary and indicate if the condition was present on admission. NABORD
--- NOTE | 2018-09-13 09:44 | Discharge Summary ---
Providers - Providers Date of Admission: 08/27/18 23:11 Date of discharge: 08/29/18 Attending physician: WALLACE MONROE 08/27/18 23:11 Occupational Therapy Evaluate and Treat [CONS] Routine Comment: Reason For Exam: Neuro deficits Physical Therapy Evaluation and Treat [CONS] Routine Comment: Reason For Exam: Neuro deficits 08/28/18 03:29 Consult to Physician [CONS] Routine Comment: Consulting Provider: DOREEN CARLIN Physician Instructions: Reason For Exam: syncope Primary care physician: ELOINA BEDOYA MD Hospitalization Reason for admission: syncope Condition: Stable Hospital course: The patient is a 52 year old female with a history of schizophrenia, depression, hypertension, HIV, hepatitis C who presented with complaints of recent syncope x 2. She stated the first episode occurred 2-3 weeks ago and that she passed out for 2 days. She also passed out this past Sunday to Sunday and has no recollection of what happened during these few days. Additionally, she states that about one week ago she experienced transient left sided weakness. She denied any chest pain, palpitations or shortness of breath. She admitted to smoking marijuana 2-3x/week but denies any other drug use although UDS positive for cocaine and marijuana. Troponin negative x 3. The patient was seen by cardiology in consultation. Cardiology recommended an echo which revealed EF 50-55%, mild MR, mild TR. Brain MRI with NAF, carotid studies with no sig findings, orthostatics unremarkable, no arrhythmias on telemetry. MRI reveals no evidence of acute/subacute infarct or hemorrhage. Small chronic left frontal lobe and right cerebral infarcts. The patient was receiving continue workup done hospitalization but left AMA on 08/29/18 17:23. Dedicated discharge time 32 minutes. Disposition: DC-07 LEFT AGAINST MED ADVICE Core Measure Documentation - Palliative Care Palliative Care/ Comfort Measures: Not Applicable - Core Measures Any of the following diagnoses?: none Exam - Constitutional Vitals: Temp Pulse Resp BP Pulse Ox 98.3 F 84 16 125/76 100 08/29/18 12:06 08/29/18 12:06 08/29/18 12:06 08/29/18 12:06 08/29/18 12:06 Plan Follow up with: ELOINA BEDOYA MD [Primary Care Provider] - 3-5 Days Forms: AMA Form
== END 2018-08-29 16:33 | disposition left against medical advice (07) | DRG 312 ==
LOC: ED 17:22 → 4A 23:11
PROVIDERS: ADMIT Internal Medicine; ATTEND Hospitalist
PROC: 3E0234Z Introduction of Serum, Toxoid and Vaccine into Muscle, Percutaneous Approach (ICD-10-PCS; principal; 2018-08-28)
DX: R55 Syncope and collapse (principal); B20 Human immunodeficiency virus [HIV] disease; B19.20 Unspecified viral hepatitis C without hepatic coma; I10 Essential (primary) hypertension; F20.9 Schizophrenia, unspecified; F32.9 Major depressive disorder, single episode, unspecified; F12.10 Cannabis abuse, uncomplicated; K58.9 Irritable bowel syndrome, unspecified; F14.10 Cocaine abuse, uncomplicated; K21.9 Gastro-esophageal reflux disease without esophagitis; F41.9 Anxiety disorder, unspecified; Z90.710 Acquired absence of both cervix and uterus; Z79.899 Other long term (current) drug therapy; Z86.73 Personal history of transient ischemic attack (TIA), and cerebral infarction without residual deficits; Z90.49 Acquired absence of other specified parts of digestive tract; Z88.1 Allergy status to other antibiotic agents; Z91.013 Allergy to seafood; Z82.49 Family history of ischemic heart disease and other diseases of the circulatory system; Z23 Encounter for immunization
CPT/HCPCS: 36415; 70450; 70551; 71275; 74177; 80048; 80053; 80061; 80307; 81001; 82550; 82553; 83690; 83735; 84484; 85007; 85025; 85610; 90732; 93005; 93010; 93306; 93880; 99406; G0378; J1650; J2405; J3010; J3480; J7030; Q9967

== ENCOUNTER 2018-11-19 00:52 | Emergency (ER) | payer MEDICARE ==
[2018-11-19 20:01] VITALS: BP 139/88
== END 2018-11-19 03:25 | disposition left against medical advice (07) ==
LOC: ED 00:52
DX: M79.671 Pain in right foot (principal); Z53.21 Procedure and treatment not carried out due to patient leaving prior to being seen by health care provider

== ENCOUNTER 2021-10-13 07:27 | Inpatient (IN) | payer MEDICARE ==
--- NOTE | 2021-10-13 07:44 | Emergency Department Report ---
ED Neuro Deficit HPI - General Chief Complaint: Neuro Symptoms/Deficit Stated Complaint: Left facial droop/slurred speech Time Seen by Provider: 10/13/21 07:32 Source: patient, family, EMS Mode of arrival: Stretcher Limitations: Physical Limitation - History of Present Illness Initial Comments: Patient is a 55-year-old female presents the emergency department concern for acute stroke. Patient has a prior history of hypertension and previous TIA. She was normal at 6 AM when her daughter dropped off her kids. Her daughter then states that at 6:40 AM the patient called and had slurred speech. She also has a right-sided facial droop, right-sided arm numbness, right leg weakness. - Related Data Home Medications: Home Medications Medication Instructions Recorded Confirmed Last Taken Losartan [Cozaar] 100 mg PO QDAY 08/27/18 10/13/21 10/12/21 Potassium Chloride [Klor-Con 10] 1 tab PO DAILY 08/27/18 10/13/21 10/12/21 ARIPiprazole [Aripiprazole] 10 mg PO UNK PRN 10/13/21 10/13/21 Unknown Emtricitab/Rilpiviri/Tenof Ala 1 tab PO QDAY 10/13/21 10/13/21 10/13/21 17:57 [Odefsey Tablet] OLANZapine [Olanzapine] 5 mg PO QDAY 10/13/21 10/13/21 10/13/21 17:48 Promethazine [Phenergan] 25 mg PO PRN PRN 10/13/21 10/13/21 Unknown amLODIPine [Norvasc] 5 mg PO DAILY 10/13/21 10/13/21 10/12/21 Allergies/Adverse Reactions: Allergies Allergy/AdvReac Type Severity Reaction Status Date / Time ampicillin Allergy Hives Verified 08/27/18 17:27 shellfish derived Allergy Swelling Verified 08/27/18 17:27 ED Review of Systems ROS: Stated complaint: Left facial droop/slurred speech Other details as noted in HPI Comment: Unobtainable due to pts medical conditions ED Past Medical Hx - Past Medical History Hx Hypertension: Yes Hx Congestive Heart Failure: No Hx Diabetes: No Hx Asthma: No Hx COPD: No Hx HIV: Yes - Social History Smoking Status: Never Smoker Substance Use Type: None - Medications Home Medications: Home Medications Medication Instructions Recorded Confirmed Last Taken Type Losartan [Cozaar] 100 mg PO QDAY 08/27/18 10/13/21 10/12/21 History Potassium Chloride [Klor-Con 10] 1 tab PO DAILY 08/27/18 10/13/21 10/12/21 History ARIPiprazole [Aripiprazole] 10 mg PO UNK PRN 10/13/21 10/13/21 Unknown History Emtricitab/Rilpiviri/Tenof Ala 1 tab PO QDAY 10/13/21 10/13/21 10/13/21 17:57 History [Odefsey Tablet] OLANZapine [Olanzapine] 5 mg PO QDAY 10/13/21 10/13/21 10/13/21 17:48 History Promethazine [Phenergan] 25 mg PO PRN PRN 10/13/21 10/13/21 Unknown History amLODIPine [Norvasc] 5 mg PO DAILY 10/13/21 10/13/21 10/12/21 History ED Neuro Physical Exam - General Limitations: Physical Limitation General appearance: alert, in no apparent distress Suspected Stroke: Yes - Head Head exam: Present: atraumatic - Eye Eye exam: Present: normal appearance - ENT ENT exam: Present: mucous membranes moist - Neck Neck exam: Present: normal inspection - Respiratory Respiratory exam: Present: normal lung sounds bilaterally. Absent: respiratory distress - Cardiovascular Cardiovascular Exam: Present: regular rate, normal rhythm. Absent: systolic murmur, diastolic murmur, rubs, gallop - GI/Abdominal GI/Abdominal exam: Present: soft - Rectal Rectal exam: Present: deferred - Extremities Exam Extremities exam: Present: normal inspection - Back Exam Back exam: Present: normal inspection - Neurological Exam Neurological exam: Present: alert - NIHSS Assessment Interval: Baseline 1a. Level of Consciousness: alert/keenly responsive 1b. LOC Questions: dysarthric/intubated 1c. LOC Commands: performs tasks correctly 2. Best Gaze: normal 3. Visual: no visual loss 4. Facial Palsy: partial paralysis 5b. Motor Arm Right: no drift 5a. Motor Arm Left: no drift 6a. Motor Leg Left: no drift 6b. Motor Leg Right: some gravity effort 7. Limb Ataxia: absent 8. Sensory: mild/moderate sensory loss 9. Best Language: severe aphasia 10. Dysarthria: severe dysarthria 11. Extinction/Inattention: no abnormality Total Score: 10 Stroke Severity: Moderate Stroke - Psychiatric Psychiatric exam: Present: other (unable to assess) - Skin Skin exam: Present: warm, dry, intact, normal color. Absent: rash ED Course Vital Signs 10/13/21 10/13/21 10/13/21 08:20 08:24 08:30 Pulse Rate 81 89 86 Pulse Rate [ Right Radial Artery] Respiratory 16 17 Rate Respiratory Rate [Right Radial Artery] Blood Pressure 129/73 129/73 Blood Pressure [Right Radial Artery] O2 Sat by Pulse 98 97 Oximetry O2 Sat by Pulse Oximetry [ Right Radial Artery] 10/13/21 10/13/21 10/13/21 08:33 08:37 08:46 Pulse Rate 85 75 Pulse Rate [ 80 Right Radial Artery] Respiratory 14 Rate Respiratory 14 Rate [Right Radial Artery] Blood Pressure 136/82 136/82 Blood Pressure 136/82 [Right Radial Artery] O2 Sat by Pulse 95 Oximetry O2 Sat by Pulse 97 Oximetry [ Right Radial Artery] 10/13/21 10/13/21 10/13/21 09:00 09:39 09:40 Pulse Rate 92 H 91 H Pulse Rate [ 73 Right Radial Artery] Respiratory 14 15 Rate Respiratory 15 Rate [Right Radial Artery] Blood Pressure 139/90 151/133 Blood Pressure 151/98 [Right Radial Artery] O2 Sat by Pulse 98 Oximetry O2 Sat by Pulse 99 Oximetry [ Right Radial Artery] 10/13/21 10/13/21 10/13/21 09:45 09:56 10:01 Pulse Rate 81 97 H Pulse Rate [ 76 Right Radial Artery] Respiratory 16 19 Rate Respiratory 13 Rate [Right Radial Artery] Blood Pressure 136/82 145/90 Blood Pressure 126/83 [Right Radial Artery] O2 Sat by Pulse 96 99 Oximetry O2 Sat by Pulse 98 Oximetry [ Right Radial Artery] 10/13/21 10/13/21 10/13/21 10:15 10:26 10:31 Pulse Rate 86 74 Pulse Rate [ 81 Right Radial Artery] Respiratory 18 11 L Rate Respiratory 13 Rate [Right Radial Artery] Blood Pressure 132/92 135/96 Blood Pressure 135/96 [Right Radial Artery] O2 Sat by Pulse 99 99 Oximetry O2 Sat by Pulse 98 Oximetry [ Right Radial Artery] 10/13/21 10/13/21 10/13/21 10:45 10:48 11:01 Pulse Rate 78 Pulse Rate [ 74 Right Radial Artery] Respiratory 15 Rate Respiratory 14 Rate [Right Radial Artery] Blood Pressure 132/93 140/77 Blood Pressure 132/93 [Right Radial Artery] O2 Sat by Pulse 99 97 Oximetry O2 Sat by Pulse 98 Oximetry [ Right Radial Artery] 10/13/21 10/13/21 10/13/21 11:15 11:25 11:31 Pulse Rate 85 89 Pulse Rate [ 80 Right Radial Artery] Respiratory 13 14 Rate Respiratory 16 Rate [Right Radial Artery] Blood Pressure 142/87 141/85 Blood Pressure 141/85 [Right Radial Artery] O2 Sat by Pulse 98 97 Oximetry O2 Sat by Pulse 99 Oximetry [ Right Radial Artery] 10/13/21 10/13/21 10/13/21 11:45 11:56 12:01 Pulse Rate 87 83 Pulse Rate [ 71 Right Radial Artery] Respiratory 14 11 L Rate Respiratory 16 Rate [Right Radial Artery] Blood Pressure 154/85 146/86 Blood Pressure 136/86 [Right Radial Artery] O2 Sat by Pulse 97 97 Oximetry O2 Sat by Pulse 99 Oximetry [ Right Radial Artery] 10/13/21 10/13/21 10/13/21 12:15 12:31 12:45 Pulse Rate 80 83 115 H Pulse Rate [ Right Radial Artery] Respiratory 13 15 18 Rate Respiratory Rate [Right Radial Artery] Blood Pressure 138/86 133/79 140/79 Blood Pressure [Right Radial Artery] O2 Sat by Pulse 99 98 98 Oximetry O2 Sat by Pulse Oximetry [ Right Radial Artery] 10/13/21 10/13/21 10/13/21 13:01 13:15 13:30 Pulse Rate 82 76 75 Pulse Rate [ Right Radial Artery] Respiratory 14 17 18 Rate Respiratory Rate [Right Radial Artery] Blood Pressure 129/75 117/67 106/70 Blood Pressure [Right Radial Artery] O2 Sat by Pulse 97 96 99 Oximetry O2 Sat by Pulse Oximetry [ Right Radial Artery] 10/13/21 10/13/21 10/13/21 14:07 14:15 14:23 Pulse Rate 84 73 Pulse Rate [ 71 Right Radial Artery] Respiratory 23 11 L Rate Respiratory 17 Rate [Right Radial Artery] Blood Pressure 106/70 145/84 Blood Pressure 145/84 [Right Radial Artery] O2 Sat by Pulse 97 98 Oximetry O2 Sat by Pulse 95 Oximetry [ Right Radial Artery] 10/13/21 10/13/21 10/13/21 15:55 15:56 16:01 Pulse Rate 97 H 94 H Pulse Rate [ 89 Right Radial Artery] Respiratory 23 19 Rate Respiratory 12 Rate [Right Radial Artery] Blood Pressure 145/84 156/93 Blood Pressure 156/93 [Right Radial Artery] O2 Sat by Pulse 100 98 Oximetry O2 Sat by Pulse 97 Oximetry [ Right Radial Artery] 10/13/21 10/13/21 10/13/21 16:04 16:09 16:15 Pulse Rate 87 96 H Pulse Rate [ Right Radial Artery] Respiratory 12 24 Rate Respiratory Rate [Right Radial Artery] Blood Pressure 156/93 Blood Pressure [Right Radial Artery] O2 Sat by Pulse 97 98 Oximetry O2 Sat by Pulse Oximetry [ Right Radial Artery] 10/13/21 10/13/21 10/13/21 16:31 16:45 17:01 Pulse Rate 86 78 98 H Pulse Rate [ Right Radial Artery] Respiratory 17 17 18 Rate Respiratory Rate [Right Radial Artery] Blood Pressure 155/103 155/103 158/95 Blood Pressure [Right Radial Artery] O2 Sat by Pulse 98 97 96 Oximetry O2 Sat by Pulse Oximetry [ Right Radial Artery] 10/13/21 10/13/21 10/13/21 17:15 17:31 18:00 Pulse Rate 93 H 89 Pulse Rate [ 89 Right Radial Artery] Respiratory 19 18 Rate Respiratory 18 Rate [Right Radial Artery] Blood Pressure 158/95 133/93 Blood Pressure 133/93 [Right Radial Artery] O2 Sat by Pulse 96 96 Oximetry O2 Sat by Pulse 96 Oximetry [ Right Radial Artery] - Reevaluation(s) Reevaluation #1: 10/13/21 08:10 Patient family member states that she was last known normal at 6 AM and then developed symptoms at 640. Patient TPA candidate. I discussed risk and benefits with the patient. Patient was turned from CT scan her initial blood pressure was in the 160s systolic. Patient has consented to TPA. tPA has been ordered. Reevaluation #2: 10/13/21 09:[address] for CTA of the head and neck. Of note this was delayed secondary to poor venous access, US guided IV access was obtained. TPA is infusing. Reevaluation #3: No LVO on CTA, planfor iCU admit - Lab Data Result diagrams: 10/13/21 07:57 Lab Results 10/13/21 10/13/21 10/13/21 Range/Units 07:47 07:57 07:57 WBC 6.6 (4.5-11.0) K/mm3 RBC 4.25 (3.65-5.03) M/mm3 Hgb 12.1 (10.1-14.3) gm/dl Hct 37.3 (30.3-42.9) % MCV 88 (79-97) fl MCH 29 (28-32) pg MCHC 33 (30-34) % RDW 15.9 H (13.2-15.2) % Plt Count 220 (140-440) K/mm3 Lymph % (Auto) 45.2 H (13.4-35.0) % Carolina % (Auto) 5.8 (0.0-7.3) % Eos % (Auto) 2.0 (0.0-4.3) % Baso % (Auto) 0.7 (0.0-1.8) % Lymph # (Auto) 3.0 (1.2-5.4) K/mm3 Carolina # (Auto) 0.4 (0.0-0.8) K/mm3 Eos # (Auto) 0.1 (0.0-0.4) K/mm3 Baso # (Auto) 0.0 (0.0-0.1) K/mm3 Seg Neutrophils % 46.3 (40.0-70.0) % Seg Neutrophils # 3.1 (1.8-7.7) K/mm3 PT 13.0 (12.2-14.9) Sec. INR 0.89 (0.87-1.13) APTT 27.3 (24.2-36.6) Sec. Thrombin Time 16.9 (15.1-19.6) Sec. POC Glucose (70-105) mg/dL Total Creatine Kinase (30-135) units/L CK-MB (CK-2) (0.0-4.0) ng/mL CK-MB (CK-2) Rel Index (0-4) Troponin T (0.00-0.029) ng/mL Triglycerides 104 (2-149) mg/dL Cholesterol 125 (50-199) mg/dL LDL Cholesterol Direct 68 (50-130) mg/dL HDL Cholesterol 39 L (40-59) mg/dL Cholesterol/HDL Ratio 3.20 % 10/13/21 10/13/21 Range/Units 07:57 08:07 WBC (4.5-11.0) K/mm3 RBC (3.65-5.03) M/mm3 Hgb (10.1-14.3) gm/dl Hct (30.3-42.9) % MCV (79-97) fl MCH (28-32) pg MCHC (30-34) % RDW (13.2-15.2) % Plt Count (140-440) K/mm3 Lymph % (Auto) (13.4-35.0) % Carolina % (Auto) (0.0-7.3) % Eos % (Auto) (0.0-4.3) % Baso % (Auto) (0.0-1.8) % Lymph # (Auto) (1.2-5.4) K/mm3 Carolina # (Auto) (0.0-0.8) K/mm3 Eos # (Auto) (0.0-0.4) K/mm3 Baso # (Auto) (0.0-0.1) K/mm3 Seg Neutrophils % (40.0-70.0) % Seg Neutrophils # (1.8-7.7) K/mm3 PT (12.2-14.9) Sec. INR (0.87-1.13) APTT (24.2-36.6) Sec. Thrombin Time (15.1-19.6) Sec. POC Glucose 152 H (70-105) mg/dL Total Creatine Kinase 152 H (30-135) units/L CK-MB (CK-2) 1.5 (0.0-4.0) ng/mL CK-MB (CK-2) Rel Index 0.9 (0-4) Troponin T < 0.010 (0.00-0.029) ng/mL Triglycerides (2-149) mg/dL Cholesterol (50-199) mg/dL LDL Cholesterol Direct (50-130) mg/dL HDL Cholesterol (40-59) mg/dL Cholesterol/HDL Ratio % - Medical Decision Making 55-year-old female history of hypertension and previous TIA here with complaint of strokelike symptoms. Patient has right-sided facial droop, right arm numbness, right leg weakness and dysarthria and aphasia. Patient initial stroke score is 10. Patient is initially hypertensive to the 180s systolic. Patient's last known normal was at 6:00 AM. Her symptoms were noted by family members at 640. Patient will be a TPA candidate if blood pressure is controlled and if initial CT head is negative. Plan for CTA imaging to evaluate for any large vessel occlusion and will discuss with large stroke sooner if patient does have large vessel occlusion. Critical Care Time: Yes Critical care time in (mins) excluding proc time.: 61 Critical care attestation.: If time is entered above; I have spent that time in minutes in the direct care of this critically ill patient, excluding procedure time. ED Disposition Clinical Impression: Stroke Disposition: ADMITTED INPATIENT Is pt being admited?: Yes Does the pt Need Aspirin: No Condition: Stable
--- NOTE | 2021-10-13 07:54 | Emergency Department Report ---
ED Neuro Deficit HPI - General Chief Complaint: Neuro Symptoms/Deficit Stated Complaint: Left facial droop/slurred speech Time Seen by Provider: 10/13/21 07:32 Source: patient, family, EMS Mode of arrival: Stretcher Limitations: Physical Limitation - History of Present Illness Initial Comments: [facility] Consult Note # Demographics Consult Type: Acute Stroke Level 1 (0-4.5 hrs) Patient Location: Emergency Room First Name: Elena Last Name: Shayne Date of : 1965 Age: 55 Facility: [facility] Time of Initial Page ( Time): 10/13/2021, 07:12 Time of Return Call (Eastern Time): 10/13/2021, 07:13 # HPI Chief Complaint: speech changes weakness (focal) History: Per EMS, patient's grandchildren reported she was in normal state of health upon awakening, then developed sudden-onset speak problems & weakness 2 hours prior to arrival (around 6am per daughter to ER Physician) - called daughter at 6:40am with symptoms per ER Physician. Last Known Normal: I have collected independent history specific to time last normal or last known well. We have collaborated with the provider and at this time, we have the most current timeline with the information that is available. 6am Duration: constant minutes hours Possible Thrombolytic candidate: not on warfarin or NOACs no intracranial hemorrhage history no recent major surgery Quality: word finding difficulty # Scores Time of exam and NIHSS ( Time): 10/13/2021, 07:20 Level of Consciousness 1a: [0] = Alert; keenly responsive LOC Questions 1b: [2] = Answers neither correctly LOC Commands 1c: [0] = Performs both tasks correctly Best Gaze 2: [0] = Normal Visual 3: [0] = No visual loss Facial Palsy 4: [1] = Minor paralysis Motor Arm Left 5a: [2] = Some effort against gravity Motor Arm Right 5b: [0] = No drift Motor Leg Left 6a: [0] = No drift Motor Leg Right 6b: [2] = Some effort against gravity Limb Ataxia 7: [0] = Absent Sensory 8: [1] = [id number] sensory loss Best Language 9: [2] = Severe aphasia Dysarthria 10: [2] = Severe dysarthria Extinction and Inattention 11: [0] = No abnormality NIHSS Total: 12 Modified Errol Scale (mRS) pre-stroke: [0] = No Symptoms Modified Jonah Scale total: 0 VAN Screening: Positive # Exam SBP: 188 DBP: 122 Mental Status: awake alert and oriented x 3 follows commands Language: aphasia Cranial Nerves: right facial droop Mild nasolabial fold asymmetry Motor: Orbiting around right forearm on roll test. # ROS Unable to obtain ROS: Aphasia # PMH-FH-SH Past Medical History: hypertension stroke Per EMRHIV, hepatitis C, schizophrenia Social History: non-smoker Medications: antihypertensive Allergies: Ampicillin, shellfish # Data Glucose: [address] personally read by me ( Time): 10/13/2021, 07:[address]: no bleed preliminarily reviewed by me, please refer to radiology read for official reading # Assessment Impression: Ischemic Stroke (Acute) # Plan Thrombolytic/Intervention: IV thrombolytic and possible IA candidate Thrombolytic Dosing: IV alteplase 0.9 mg/kg, max dose 90 mg; 10% of dose given over 1 minute IVP, remaining 90% given as infusion over 1 hour Possible IA Candidate: signs and symptoms of LVO CTA pending Given the current persistent symptoms & reported lack of exclusion conditions, the risks & benefits of thrombolysis were discussed with the patient/ caregiver. Alteplase is FDA-approved for treating acute ischemic strokes & patients generally do better with treatment than without. Time IV Thrombolytic Recommended (): 10/13/2021, 07:45 Labs: CBC comprehensive metabolic panel ESR hemoglobin A1c lipid panel TSH urine drug screen ua Imaging: (urgency: STAT): CT Angiogram Head and CT Angiogram Neck AND call back with results if abnormal Imaging: (urgency: routine): MRI Brain without contrast Diagnostic Test: echo without bubble study EEG Therapy/Evaluation: NPO until swallow evaluation PT/OT evaluation speech/swallow consultation DVT Prophylaxis: SCD chemical DVT prophylaxis Thrombolytic Administration Recommendations: Unable to obtain informed consent due to medical condition. No family available. In my opinion, benefits of IV thrombolytic therapy outweigh risks. I have collected independent history specific to time last normal or last known well. We have collaborated with the ED provider and at this time, we have the most current timeline with the information that is available. BP goal< 180/105 for 24hrs post Thrombolytic administration Use Labetolol 10-20mg IV prn or Nicardipine gtt to maintain BP parameters No antiplatelets or anticoagulants for next 24 hrs unless indicated for emergent IA procedure or other life threatening situation Other: LDL < 70 permissive hypertension telemetry monitoring I have discussed my recommendations with the referring provider Disposition: admit - Related Data Home Medications: Home Medications Medication Instructions Recorded Confirmed Last Taken Emtricitab/Rilpiviri/Tenof Ala 1 each PO DAILY 08/27/18 08/27/18 Unknown [Odefsey Tablet] Ergocalciferol [Vitamin D2] 1 tab PO DAILY 08/27/18 08/27/18 Unknown Losartan [Cozaar] 100 mg PO QDAY 08/27/18 08/27/18 Unknown Potassium Chloride [Klor-Con 10] 1 tab PO DAILY 08/27/18 08/27/18 Unknown clonazePAM [Clonazepam] 1 tab PO BID PRN 08/27/18 08/27/18 Unknown Allergies/Adverse Reactions: Allergies Allergy/AdvReac Type Severity Reaction Status Date / Time ampicillin Allergy Hives Verified 08/27/18 17:27 shellfish derived Allergy Swelling Verified 08/27/18 17:27 ED Review of Systems ROS: Stated complaint: Left facial droop/slurred speech Other details as noted in HPI ED Past Medical Hx - Past Medical History Hx Hypertension: Yes Hx Congestive Heart Failure: No Hx Diabetes: No Hx Asthma: No Hx COPD: No Hx HIV: Yes - Social History Smoking Status: Never Smoker Substance Use Type: None - Medications Home Medications: Home Medications Medication Instructions Recorded Confirmed Last Taken Type Emtricitab/Rilpiviri/Tenof Ala 1 each PO DAILY 08/27/18 08/27/18 Unknown History [Odefsey Tablet] Ergocalciferol [Vitamin D2] 1 tab PO DAILY 08/27/18 08/27/18 Unknown History Losartan [Cozaar] 100 mg PO QDAY 08/27/18 08/27/18 Unknown History Potassium Chloride [Klor-Con 10] 1 tab PO DAILY 08/27/18 08/27/18 Unknown History clonazePAM [Clonazepam] 1 tab PO BID PRN 08/27/18 08/27/18 Unknown History ED Neuro Physical Exam - General Limitations: Physical Limitation General appearance: alert, in no apparent distress Suspected Stroke: Yes - NIHSS Assessment Interval: Baseline 1a. Level of Consciousness: alert/keenly responsive 1b. LOC Questions: answers no questions correctly 1c. LOC Commands: performs no tasks correctly 2. Best Gaze: normal 3. Visual: no visual loss 4. Facial Palsy: minor paralysis 5b. Motor Arm Right: some gravity effort 5a. Motor Arm Left: no drift 6a. Motor Leg Left: no drift 6b. Motor Leg Right: some gravity effort 7. Limb Ataxia: absent 8. Sensory: severe/total sensory loss 9. Best Language: severe aphasia 10. Dysarthria: severe dysarthria 11. Extinction/Inattention: no abnormality Total Score: 15 Stroke Severity: Moderate Stroke Critical care attestation.: If time is entered above; I have spent that time in minutes in the direct care of this critically ill patient, excluding procedure time. ED Disposition Clinical Impression: Stroke Disposition: 09 ADMITTED INPATIENT Is pt being admited?: Yes Condition: Stable
--- NOTE | 2021-10-13 07:59 | Cat Scan Report ---
CT HEAD WITHOUT CONTRAST INDICATION / CLINICAL INFORMATION: CODE STROKE CALL ER MAIN AT 8199 Stroke symptoms. TECHNIQUE: Axial imaging performed from the skull apex through the skull base without the use of cont rast. Sagittal and coronal reformatted images. All CT scans at this location are performed using CT dose reduction for ALARA by means of automated exposure control. COMPARISON: 08/27/2018 FINDINGS: CEREBRAL PARENCHYMA: Mild cortical volume loss and mild chronic microangiopathy in the white matter a re noted. No acute parenchymal abnormality is detected. Small chronic left subfrontal, right posterio r frontal and right cerebellar infarcts are identified. HEMORRHAGE: None. EXTRA-AXIAL SPACES: Normal in size and morphology for the patient's age. VENTRICULAR SYSTEM: Normal in size and morphology for the patient's age. MIDLINE SHIFT OR HERNIATION: None. CEREBELLUM / BRAINSTEM: No significant abnormality. CALVARIUM: No significant abnormality. ORBITS: Normal as visualized. PARANASAL SINUSES / MASTOID AIR CELLS: Normal as visualized. SOFT TISSUES of HEAD: No significant abnormality. ADDITIONAL FINDINGS: Chronic appearing bilateral nasal bone fractures, mildly displaced. Deviated sep david. IMPRESSION: No acute intracranial abnormality. Mild volume loss and chronic white matter changes. Focal chronic i nfarcts as described. CODE STROKE: Time of Communication (W[employer]/CDT): 0652 hours Licensed Practitioner Receiving Report: Dr. Kemp Signer Name: Amando Reynolds Jr, MD Signed: 10/13/2021 7:54 AM Workstation Name: [id number]
[2021-10-13] MEDS ORDERED: SODIUM CHLORIDE 0.9% 50 ML IVPB IV ONE (08:06)
[2021-10-13] MEDS ORDERED: ALTEPLASE 100 MG INJ KIT IV ONE ×2 (08:06)
[2021-10-13 08:17] LABS: Basophils % (Auto) 0.7 % (0.0-1.8); Eosinophils # (Auto) 0.1 K/mm3 (0.0-0.4); Hematocrit 37.3 % (30.3-42.9); Hemoglobin 12.1 gm/dl (10.1-14.3); Lymphocytes % (Auto) 45.2 % (13.4-35.0); Mean Corpuscular HGB Conc 33 % (30-34); Mean Corpuscular Volume 88 fl (79-97); Monocytes # (Auto) 0.4 K/mm3 (0.0-0.8); Monocytes % (Auto) 5.8 % (0.0-7.3); Platelet Count 220 K/mm3 (140-440); Red Blood Count 4.25 M/mm3 (3.65-5.03); Red Cell Distribution Width 15.9 % (13.2-15.2)
[2021-10-13 08:27] LABS: INR 0.89 (0.87-1.13)
[2021-10-13 08:28] LABS: Partial Thromboplastin Time 27.3 Sec. (24.2-36.6); Thrombin Time 16.9 Sec. (15.1-19.6)
[2021-10-13 08:33] LABS: Creatine Kinase MB 1.5 ng/mL (0.0-4.0)
--- NOTE | 2021-10-13 10:10 | Cat Scan Report ---
CT angio head INDICATION / CLINICAL INFORMATION: 55 years Female; CODE MARISSA [id number] 100 MLstroke sx. TECHNIQUE: Thin cut axial images obtained through the head during IV bolus contrast administration. S agittal, coronal, and 3 plane MIP reconstructions performed by the technologist. NASCET type criteria used evaluate stenoses. Automated exposure control utilized for radiation reduction purposes. COMPARISON: None available. FINDINGS: INTERNAL CAROTID ARTERIES: There is admixture of contrast within the cavernous sinus sinuses. Additio dana, there is atherosclerotic calcification involving the more distal ICAs. There appears be associ ated mild segmental narrowing of the distal ICAs bilaterally. VERTEBROBASILAR SYSTEM: There is no significant focal stenosis involving vertebral basilar system. CEREBRAL ARTERIES: The motion degrades the image quality was somewhat small caliber of the cranial ve ssels which appears reflect developmental component at. There is no clear CTA evidence of significant stenosis involving visualized proximal arteries or adjacent segments. ANEURYSM: None identified. ADDITIONAL FINDINGS: The dural venous sinuses opacify with contrast. The findings correlate with the earlier noncontrast CT demonstrated focal encephalomalacia along the inferior right frontal lobe whic h may be related to previous trauma given the location. There is an old infarct involving the right c erebellum. IMPRESSION: There appears be mild segmental narrowing involving intracranial ICAs as detailed above. There is no clear CT evidence of large vessel occlusion involving intracranial vessels. Signer Name: Charles Garcia MD Signed: 10/13/2021 10:05 AM Workstation Name: [id number]
--- NOTE | 2021-10-13 10:14 | Cat Scan Report ---
CT angio neck INDICATION / CLINICAL INFORMATION: 55 years Female; CODE STROKE OMNI 350 100 ML. TECHNIQUE: Thin cut axial images obtained through the head during IV bolus contrast administration. S agittal, coronal, and 3 plane MIP reconstructions performed by the technologist. NASCET type criteria used evaluate stenoses. All CT scans at this location are performed using CT dose reduction for ALAR A by means of automated exposure control. COMPARISON: None available. FINDINGS: CAROTID ARTERIES: There is small focus of calcification involving right carotid bifurcation. However, there is no significant stenosis involving cervical carotid arteries by NASCET criteria. The carotid bifurcations are widely patent. VERTEBRAL ARTERIES: The cervical vertebral arteries also demonstrate appropriate caliber without sign ificant focal narrowing. ARCH: There is minimal calcification involving aortic arch and arch vessels. However, there is no sig nificant stenosis. ADDITIONAL FINDINGS: Remainder of the surrounding soft tissues are grossly normal. IMPRESSION: There is no significant stenosis involving cervical carotid or vertebral arteries by NASCET to criter ia. Signer Name: Charles Garcia MD Signed: 10/13/2021 10:09 AM Workstation Name: [id number]
[2021-10-13] MEDS ORDERED: ACETAMINOPHEN 650 MG RECT SUPP PR PRN (10:50)
[2021-10-13] MEDS ORDERED: MORPHINE 2 MG/1 ML INJ IV PRN (10:50)
[2021-10-13] MEDS ORDERED: ONDANSETRON 4 MG/2 ML INJ IV PRN (10:50)
--- NOTE | 2021-10-13 11:29 | Consultation ---
History of Present Illness Consult date: 10/13/21 Reason for Consult: New onset right side weakness and slurred speech this am 6.40am ,Post TPA History of present illness: Patient is a 55-year-old female presents the emergency department concern for acute stroke. Patient has a prior history of hypertension and previous CVA affected left side over a year ago she is on ASA daily and lipitor , She was normal at 6 AM when her daughter dropped off her kids. Her daughter then states that at 6:40 AM the patient called and had slurred speech. She also has a right-sided facial droop, right-sided arm numbness, right leg weakness. presented to ER initial NIH#10 CT brain is remarkable for remote infarct right frontal and right cerebellar CTA brain and neck is remarkable for bilateral distal ICA stenosis MRI brain is pending she smokes 7-8 cigarets a day drinks rarely no recreational drugs - Related Data Home Medications: Home Medications Medication Instructions Recorded Confirmed Last Taken Emtricitab/Rilpiviri/Tenof Ala 1 each PO DAILY 08/27/18 08/27/18 Unknown [Odefsey Tablet] Ergocalciferol [Vitamin D2] 1 tab PO DAILY 08/27/18 08/27/18 Unknown Losartan [Cozaar] 100 mg PO QDAY 08/27/18 08/27/18 Unknown Potassium Chloride [Klor-Con 10] 1 tab PO DAILY 08/27/18 08/27/18 Unknown clonazePAM [Clonazepam] 1 tab PO BID PRN 08/27/18 08/27/18 Unknown Allergies/Adverse Reactions: Allergies Allergy/AdvReac Type Severity Reaction Status Date / Time ampicillin Allergy Hives Verified 08/27/18 17:27 shellfish derived Allergy Swelling Verified 08/27/18 17:27 ED Review of Systems ROS: Stated complaint: Left facial droop/slurred speech Other details as noted in HPI Comment: Unobtainable due to pts medical conditions ED Past Medical Hx - Past Medical History Hx Hypertension: Yes Hx Congestive Heart Failure: No Hx Diabetes: No Hx Asthma: No Hx COPD: No Hx HIV: Yes - Social History Smoking Status: Never Smoker Substance Use Type: None - Medications Home Medications: Home Medications Medication Instructions Recorded Confirmed Last Taken Type Emtricitab/Rilpiviri/Tenof Ala 1 each PO DAILY 08/27/18 08/27/18 Unknown History [Odefsey Tablet] Ergocalciferol [Vitamin D2] 1 tab PO DAILY 08/27/18 08/27/18 Unknown History Losartan [Cozaar] 100 mg PO QDAY 08/27/18 08/27/18 Unknown History Potassium Chloride [Klor-Con 10] 1 tab PO DAILY 08/27/18 08/27/18 Unknown History clonazePAM [Clonazepam] 1 tab PO BID PRN 08/27/18 08/27/18 Unknown History Medications and Allergies Allergies Allergy/AdvReac Type Severity Reaction Status Date / Time ampicillin Allergy Hives Verified 08/27/18 17:27 shellfish derived Allergy Swelling Verified 08/27/18 17:27 Home Medications Medication Instructions Recorded Confirmed Last Taken Type Emtricitab/Rilpiviri/Tenof [place] 1 each PO DAILY 08/27/18 08/27/18 Unknown History [Odefsey Tablet] Ergocalciferol [Vitamin D2] 1 tab PO DAILY 08/27/18 08/27/18 Unknown History Losartan [Cozaar] 100 mg PO QDAY 08/27/18 08/27/18 Unknown History Potassium Chloride [Klor-Con 10] 1 tab PO DAILY 08/27/18 08/27/18 Unknown History clonazePAM [Clonazepam] 1 tab PO BID PRN 08/27/18 08/27/18 Unknown History Active Meds: Active Medications Acetaminophen (Acetaminophen 650 Mg Rect Supp) 650 mg [place] Q6H PRN PRN Reason: Pain MILD(1-3)/Fever >100.5/MENJIVAR Morphine Sulfate (Morphine 2 Mg/1 Ml Inj) 2 mg IV Q4H PRN PRN Reason: Pain, Moderate (4-6) Ondansetron HCl (Ondansetron 4 Mg/2 Ml Inj) 4 mg IV Q8H PRN PRN Reason: Nausea And Vomiting Sodium Chloride (Sodium Chloride 0.9% 10 Ml Flush Syringe) 10 ml IV BID DARINEL Sodium Chloride (Sodium Chloride 0.9% 10 Ml Flush Syringe) 10 ml IV PRN PRN PRN Reason: LINE FLUSH Physical Examination - Vital Signs Vital Signs: Vital Signs Pulse BP 81 129/73 10/13/21 08:20 10/13/21 08:20 - Constitutional General appearance: comfortable - EENT EENT: Present: PERRL, mucous membranes moist - Respiratory Respiratory: Present: chest non-tender, lungs clear, rhonchi - Cardiovascular Cardiovascular: Present: regular rate, normal S1, normal S2 Extremities: Present: no peripheral edema bilatateraly, no clubbing, cyanosis - Gastrointestinal Gastrointestinal: Present: normoactive bowel sounds - Integumentary Integumentary: Present: normal - Neurologic Cranial nerve examination: PERRL, EOMI, intact Speech examination: motor aphasia, other (slurred speech with slight difficulty in words findings ) Sensorimotor examination: intact Detailed motor examination: grossly full strength in - Level of Consciousness 1a. Level of Consciousness: alert/keenly responsive - LOC Questions 1b. LOC Questions: answers both correctly - LOC Command 1c. LOC Commands: performs tasks correctly - Best Gaze 2. Best Gaze: normal - Visual 3. Visual: no visual loss - Facial Palsy 4. Facial Palsy: normal symmetrical movement - Motor Arm 5a. Motor Arm Left: no drift 5b. Motor Arm Right: no drift - Motor Leg 6a. Motor Leg Left: no drift 6b. Motor Leg Right: no drift - Limb Ataxia 7. Limb Ataxia: absent - Sensory 8. Sensory: normal - Best Language 9. Best Language: mild/moderate aphasia - Dysarthria 10. Dysarthria: normal - Extinction and Inattention 11. Extinction/Inattention: no abnormality - Scoring Total Score: 1 Stroke Severity: Minor Stroke Results - Laboratory Findings CBC and BMP: 10/13/21 07:57 Abnormal Lab Findings: Abnormal Labs 10/13/21 10/13/21 10/13/21 07:57 07:57 08:07 RDW 15.9 H Lymph % (Auto) 45.2 H POC Glucose 152 H Total Creatine Kinase 152 H Assessment and Plan - Medical Decision Making 55-year-old female history of hypertension and previous Hx of CVA Patient has right-sided facial droop, right arm numbness, right leg weakness and aphasia. Patient initial stroke score is 10. Patient is initially hypertensive to the 180s systolic. Patient's last known normal was at 6:00 AM. Her symptoms were noted by family members at 640. Impression and Plan # New onset slurred speech and right side weakness 6.40 am -She is with Hx of CVA one year ago on ASA and Lipitor -she is smoker 7-8 Cigarets a day -Initial NIH#10 currently after TPA is #1 -CT brain is remarkable for remote right frontal and cerebellar infarct -CTA brain and neck is remarkable for Bilateral ICA distal stenosis -s/p TPA today -MRI brain is pending -LDLis pending -Echo is pending -A1C is pending -ST and Pt evaluation -Hold ASA and antiplatletes therapy for 24 hours { check repeat CT in 24 hours } -cardiac Monitoring #HTN -Allow for permissive HTN<180/110 for @4 hours -then gradual decrease to 150/80 # Smoking Hx -average 7-8 Cig daily #HLP -restart lipitor at 40 mg daily -LDL is pending # Recurrent CVA -suggest cardiac monitering -Echo with bubble study - consider US carotid due to ICA stenosis noted on CTA will follow
[2021-10-13 14:08] LABS: Chol/HDL Ratio 3.2 %
--- NOTE | 2021-10-13 14:17 | Vascular Lab Report ---
DUPLEX DOPPLER ULTRASOUND CAROTID, BILATERAL INDICATION / CLINICAL INFORMATION: CVA. COMPARISON: None available. FINDINGS: RIGHT CAROTID: - PLAQUE ESTIMATE (%): < 50% - CCA velocity: 60 cm/sec. - ICA peak systolic velocity: 73 cm/sec. - ICA/CCA PSV Ratio: 1.2 Right Vertebral Artery: Antegrade flow. LEFT CAROTID: - PLAQUE ESTIMATE: < 50% - CCA velocity: 64 cm/sec. - ICA peak systolic velocity: 54 cm/sec. - ICA/CCA PSV Ratio: 0.8 Left Vertebral Artery: Antegrade flow. IMPRESSION: 1. Right Internal Carotid Artery: Less than 50% diameter stenosis. 2. Left Internal Carotid Artery: Less than 50% diameter stenosis. Velocity criteria are extrapolated from diameter data as defined by the Society of Radiologists in [facility] Consensus Conference, Radiology 2003; 229;340-346. NO STENOSIS (NORMAL) * Plaque = none; ICA PSV < 125 cm/sec; ICA/CCA PSV Ratio < 2.0 <50% STENOSIS * Plaque < 50%; ICA PSV < 125 cm/sec; ICA/CCA PSV Ratio < 2.0 50-69% STENOSIS * Plaque > 50%; ICA PSV = 125-230 cm/sec; ICA/CCA PSV Ratio = 2.0-4.0 >70% BUT <100% STENOSIS * Plaque > 50%; ICA PSV > 230 cm/sec; ICA/CCA PSV Ratio > 4.0 NEAR OCCLUSION * Plaque = visible lumen; ICA PSV = high/low/none; ICA/CCA PSV Ratio = variable TOTAL OCCLUSION * Plaque = no lumen; ICA PSV = none; ICA/CCA PSV Ratio = N/A Signer Name: Graham Grant MD Signed: 10/13/2021 2:13 PM Workstation Name: [id number]
[2021-10-13] MEDS ORDERED: LORazepam 2 MG/ML VIAL IV ONE (14:38)
--- NOTE | 2021-10-13 15:10 | Magnetic Resonance Report ---
MR brain wo con INDICATION / CLINICAL INFORMATION: cva. TECHNIQUE: Multiplanar, multisequence MR images of the brain were obtained. COMPARISON: CT head earlier same day FINDINGS: INTRACRANIAL: Tiny focus restricted diffusion seen within the left caudate. ADC is normalized. This i s in the region of encephalomalacia from remote infarction. Periventricular and centrum semiovale T2 white matter hyperintensities most consistent with sequela of chronic microvascular disease. Encephal omalacia is seen in the left orbitofrontal region from remote infarction. No hemorrhage. Ventricular caliber is normal. No extra-axial collection. No mass. No herniation. Major intracranial vascular fl ow voids are preserved. ORBITS: No significant abnormality of visualized orbits. SINUSES / MASTOIDS: Moderate right mastoid effusion with preservation of osseous septa. No significan t abnormality of visualized sinuses and mastoid air cells. ADDITIONAL FINDINGS: None. IMPRESSION: 1. Tiny punctate subacute lacunar infarction seen within the left caudate head. This is in a small re gion of encephalomalacia from a prior remote left caudate infarction. 2. Moderate sequela of chronic microvascular disease. Small remote left frontal infarction. 3. Moderate right mastoid effusion. Signer Name: Roberth Estevez MD Signed: 10/13/2021 3:06 PM Workstation Name: [id number]
--- NOTE | 2021-10-13 18:43 | History and Physical Report ---
History of Present Illness Date of admission: 10/13/21 10:51 Chief complaint: slurred speech History of present illness: 55 yo female with pmhx of CVA in jul 2021, HTN ,HLD, "prediabetes" presenting with new onset slurred speech. Last known normal 6:00 AM. Onset of symptomology was approximately 6:40 AM. Patient symptoms were recognized promptly thus she presented to our facility. tPA administered at 830 AM. Symptoms have been improving but still persist. Patient has difficulty initiating speech and daughter states that her current speech is still not at her baseline. Patient denied any additional symptomology of MENJIVAR, N/V/D/C, CP, shortness of breath, abdominal pain, focal weakness, parasthesias/numbness. Of note, patient had cva in jul 2021 which was transient. Patient had presented at the time with LUE numbness. Her symptoms had resolved afterwards. She only takes baby aspirin. Both patient and daughter unclear about all medications that the patient takes. PMHx: HTN, HLD, CVA 2020 PSHx: denies FHx: reviewed non contributory SHx: Tobacco use- 0.5 ppd smoker ETOH Use- admits Recreational Drug Use- denies Medications and Allergies Allergies Allergy/AdvReac Type Severity Reaction Status Date / Time ampicillin Allergy Hives Verified 08/27/18 17:27 shellfish derived Allergy Swelling Verified 08/27/18 17:27 Home Medications Medication Instructions Recorded Confirmed Last Taken Type Losartan [Cozaar] 100 mg PO QDAY 08/27/18 10/13/21 10/12/21 History Potassium Chloride [Klor-Con 10] 1 tab PO DAILY 08/27/18 10/13/21 10/12/21 History ARIPiprazole [Aripiprazole] 10 mg PO UNK PRN 10/13/21 10/13/21 Unknown History Emtricitab/Rilpiviri/Tenof Ala 1 tab PO QDAY 10/13/21 10/13/21 10/13/21 17:57 History [Odefsey Tablet] OLANZapine [Olanzapine] 5 mg PO QDAY 10/13/21 10/13/21 10/13/21 17:48 History Promethazine [Phenergan] 25 mg PO PRN PRN 10/13/21 10/13/21 Unknown History amLODIPine [Norvasc] 5 mg PO DAILY 10/13/21 10/13/21 10/12/21 History Active Meds: Active Medications Acetaminophen (Acetaminophen 650 Mg Rect Supp) 650 mg [place] Q6H PRN PRN Reason: Pain MILD(1-3)/Fever >100.5/MENJIVAR Atorvastatin Calcium (Atorvastatin 40 Mg Tab) 40 mg PO QHS DARINEL Morphine Sulfate (Morphine 2 Mg/1 Ml Inj) 2 mg IV Q4H PRN PRN Reason: Pain, Moderate (4-6) Ondansetron HCl (Ondansetron 4 Mg/2 Ml Inj) 4 mg IV Q8H PRN PRN Reason: Nausea And Vomiting Sodium Chloride (Sodium Chloride 0.9% 10 Ml Flush Syringe) 10 ml IV BID DARINEL Sodium Chloride (Sodium Chloride 0.9% 10 Ml Flush Syringe) 10 ml IV PRN PRN PRN Reason: LINE FLUSH Review of Systems Neurological: change in speech Exam - Physical Exam Narrative exam: Physical Exam: VITAL SIGNS: Reviewed. GENERAL: The patient appears normally developed, Vital signs as documented. HEAD: No signs of head trauma. EYES: Pupils are equal. Extraocular motions intact. EARS: Hearing grossly intact. MOUTH: Oropharynx is normal. NECK: No adenopathy, no JVD. CHEST: Chest with clear breath sounds bilaterally. No wheezes, rales, or rhonchi. CARDIAC: Regular rate and rhythm. S1 and S2, without murmurs, gallops, or rubs. VASCULAR: No Edema. Peripheral pulses normal and equal in all extremities. ABDOMEN: Soft, non tender and non distended. No rebound or guarding, and no masses palpated. Bowel Sounds normal. MUSCULOSKELETAL: Good range of motion of all major joints. Extremities without clubbing, cyanosis or edema. NEUROLOGIC EXAM: Alert and oriented x 4. slurred speech. PSYCHIATRIC: Mood normal. SKIN: detail exam as documented in skin assessment - Constitutional Vitals: Temp Pulse Resp BP Pulse Ox 89 18 133/93 96 10/13/21 18:00 10/13/21 18:00 10/13/21 18:00 10/13/21 18:00 HEART Score - HEART Score Troponin: Troponin T < 0.010 ng/mL (0.00-0.029) 10/13/21 07:57 Results - Labs CBC & Chem 7: 10/13/21 07:57 Labs: Laboratory Last Values WBC 6.6 K/mm3 (4.5-11.0) 10/13/21 07:57 RBC 4.25 M/mm3 (3.65-5.03) 10/13/21 07:57 Hgb 12.1 gm/dl (10.1-14.3) 10/13/21 07:57 Hct 37.3 % (30.3-42.9) 10/13/21 07:57 MCV 88 fl (79-97) 10/13/21 07:57 MCH 29 pg (28-32) 10/13/21 07:57 MCHC 33 % (30-34) 10/13/21 07:57 RDW 15.9 % (13.2-15.2) H 10/13/21 07:57 Plt Count 220 K/mm3 (140-440) 10/13/21 07:57 Lymph % (Auto) 45.2 % (13.4-35.0) H 10/13/21 07:57 [place] % (Auto) 5.8 % (0.0-7.3) 10/13/21 07:57 Eos % (Auto) 2.0 % (0.0-4.3) 10/13/21 07:57 Baso % (Auto) 0.7 % (0.0-1.8) 10/13/21 07:57 Lymph # (Auto) 3.0 K/mm3 (1.2-5.4) 10/13/21 07:57 [place] # (Auto) 0.4 K/mm3 (0.0-0.8) 10/13/21 07:57 Eos # (Auto) 0.1 K/mm3 (0.0-0.4) 10/13/21 07:57 Baso # (Auto) 0.0 K/mm3 (0.0-0.1) 10/13/21 07:57 Seg Neutrophils % 46.3 % (40.0-70.0) 10/13/21 07:57 Seg Neutrophils # 3.1 K/mm3 (1.8-7.7) 10/13/21 07:57 PT 13.0 Sec. (12.2-14.9) 10/13/21 07:57 INR 0.89 (0.87-1.13) 10/13/21 07:57 APTT 27.3 Sec. (24.2-36.6) 10/13/21 07:57 Thrombin Time 16.9 Sec. (15.1-19.6) 10/13/21 07:57 POC Glucose 152 mg/dL (70-105) H 10/13/21 08:07 Total Creatine Kinase 152 units/L (30-135) H 10/13/21 07:57 CK-MB (CK-2) 1.5 ng/mL (0.0-4.0) 10/13/21 07:57 CK-MB (CK-2) Rel Index 0.9 (0-4) 10/13/21 07:57 Troponin T < 0.010 ng/mL (0.00-0.029) 10/13/21 07:57 Triglycerides 104 mg/dL (2-149) 10/13/21 07:47 Cholesterol 125 mg/dL (50-199) 10/13/21 07:47 LDL Cholesterol Direct 68 mg/dL (50-130) 10/13/21 07:47 HDL Cholesterol 39 mg/dL (40-59) L 10/13/21 07:47 Cholesterol/HDL Ratio 3.20 % 10/13/21 07:47 Assessment and Plan Assessment and plan: # Acute CVA s/p tPA admin - initial NIH 10, now 1, prior hx of cva in 2020 - slurred speech, some improvement per daughter - initial CT brain unremarkable - MR brain pending - ECHO pending - carotid ultrasound - [address] brain pending - start asa if 24hr ct negative for bleed - PT/OT/ST - lipitor ordered - neurology consultation - icu consultation # Hypertension - resume home antihypertensives. # Hyperlipidemia - lipid panel pending - statin as above # Pre-diabetes - hemoglobin a1c pending # Nicotine Abuse - 0.5 ppd smoker - behavioral health counseling on quitting strategies +15 mins dispo: ICU The high probability of a clinically significant, sudden or life threatening deterioration of the [neuro] system(s) required my full and direct attention, intervention and personal management. The aggregate critical care time was [60] minutes. This time is in addition to time spent performing reported procedures but includes the following: [x] Data Review and interpretation [x] Patient assessment and monitoring of vital signs [x] Documentation [x] Medication orders and management
[2021-10-13] MEDS: oxyCODONE /ACETAMINOPHEN 5-325MG TAB PO PRN (21:07)
[2021-10-14] MEDS: oxyCODONE /ACETAMINOPHEN 5-325MG TAB PO PRN ×2 (04:58→11:37)
[2021-10-14 05:57] LABS: Basophils % (Auto) 0.5 % (0.0-1.8); Eosinophils # (Auto) 0.2 K/mm3 (0.0-0.4); Eosinophils % (Auto) 3.3 % (0.0-4.3); Hematocrit 37.3 % (30.3-42.9); Hemoglobin 12.1 gm/dl (10.1-14.3); Lymphocytes # (Auto) 3.3 K/mm3 (1.2-5.4); Lymphocytes % (Auto) 50.7 % (13.4-35.0); Mean Corpuscular HGB Conc 32 % (30-34); Mean Corpuscular Volume 88 fl (79-97); Monocytes # (Auto) 0.5 K/mm3 (0.0-0.8); Monocytes % (Auto) 7.4 % (0.0-7.3); Platelet Count 212 K/mm3 (140-440); Red Blood Count 4.26 M/mm3 (3.65-5.03); Red Cell Distribution Width 15.4 % (13.2-15.2)
[2021-10-14 06:22] LABS: BUN/Creatinine Ratio 16; Blood Urea Nitrogen 11 mg/dL (7-17); Calcium 9.5 mg/dL (8.4-10.2); Hemolysis Index 9
--- NOTE | 2021-10-14 09:23 | Electrocardiograph Report ---
[facility] Test Date: 2021-10-14 Test Time: 07:33:38 Pat Name: TEODORO STUBBS Department: Room: A254 1 Gender: F Dx Board Operator: BASIL : 1965 Requested By: VIRAL ROSADO Order Number: [id number] Reading MD: Reddy Ortiz Measurements Intervals [place] Rate: 70 P: 54 WA: 135 QRS: 22 QRSD: 77 T: 29 QT: 427 QTc: 463 Interpretive Statements Sinus rhythm No previous ECG available for comparison Electronically Signed On 10-14-2021 9:22:54 EST by Reddy Ortiz
[2021-10-14] MEDS: POTASSIUM CHLORIDE ER 20 MEQ TAB PO SCH ×2 (09:44→14:04)
[2021-10-14] MEDS ORDERED: MAGNESIUM SULFATE 4 GM/100 ML BAG IV SCH (10:00)
[2021-10-14] MEDS ORDERED: ASPIRIN 81 MG TAB CHEW PO SCH (11:00)
--- NOTE | 2021-10-14 11:11 | Consultation ---
History of Present Illness - Reason for Consult Consult date: 10/14/21 Post TPA for stroke - History of Present Illness 55 y/o female with prior history of Strokes and HIV admitted with stroke like symptoms s/p TPA on yesterday morning around 0830. All of her symptoms have resolved except slurred speech is still present. Passed swallow eval this am. REmainder of the review is negative. Past History Past Medical History: HIV/AIDS, hypertension, other (CVA, pysch) Medications and Allergies Allergies Allergy/AdvReac Type Severity Reaction Status Date / Time ampicillin Allergy Hives Verified 08/27/18 17:27 shellfish derived Allergy Swelling Verified 08/27/18 17:27 Home Medications Medication Instructions Recorded Confirmed Last Taken Type Losartan [Cozaar] 100 mg PO QDAY 08/27/18 10/13/21 10/12/21 History Potassium Chloride [Klor-Con 10] 1 tab PO DAILY 08/27/18 10/13/21 10/12/21 History ARIPiprazole [Aripiprazole] 10 mg PO UNK PRN 10/13/21 10/13/21 Unknown History Emtricitab/Rilpiviri/Tenof Ala 1 tab PO QDAY 10/13/21 10/13/21 10/13/21 17:57 Hi story [Odefsey Tablet] OLANZapine [Olanzapine] 5 mg PO QDAY 10/13/21 10/13/21 10/13/21 17:48 History Promethazine [Phenergan] 25 mg PO PRN PRN 10/13/21 10/13/21 Unknown History amLODIPine [Norvasc] 5 mg PO DAILY 10/13/21 10/13/21 10/12/21 History Active Meds: Active Medications Acetaminophen (Acetaminophen 650 Mg Rect Supp) 650 mg [place] Q6H PRN PRN Reason: Pain MILD(1-3)/Fever >100.5/MENJIVAR Aspirin (Aspirin 81 Mg Tab Chew) 81 mg PO QDAY DARINEL Atorvastatin Calcium (Atorvastatin 40 Mg Tab) 80 mg PO QHS [facility] Last Admin: 10/13/21 21:07 Dose: 80 mg Magnesium Sulfate (Magnesium Sulfate 4gm/100ml) 4 gm in 100 mls @ 25 mls/hr IV ONCE@1000 DARINEL Stop: 10/14/21 12:00 Ondansetron HCl (Ondansetron 4 Mg/2 Ml Inj) 4 mg IV Q8H PRN PRN Reason: Nausea And Vomiting Oxycodone/Acetaminophen (Oxycodone /Acetaminophen 5-325mg Tab) 1 tab PO Q6H PRN PRN Reason: Pain, Moderate (4-6) Last Admin: 10/14/21 04:58 Dose: 1 tab Potassium Chloride (Potassium Chloride Er 20 Meq Tab) 40 meq PO Q4HR [facility] Stop: 10/14/21 14:01 Last Admin: 10/14/21 09:44 Dose: 40 meq Sodium Chloride (Sodium Chloride 0.9% 10 Ml Flush Syringe) 10 ml IV BID [facility] Last Admin: 10/13/21 21:51 Dose: 10 ml Sodium Chloride (Sodium Chloride 0.9% 10 Ml Flush Syringe) 10 ml IV PRN PRN PRN Reason: LINE FLUSH Review of Systems All systems: negative Exam - Constitutional Vitals: Temp Pulse Resp BP Pulse Ox 97.4 F L 81 12 128/67 100 10/14/21 08:03 10/14/21 06:00 10/14/21 06:00 10/14/21 06:00 10/14/21 06:00 General appearance: Present: no acute distress - EENT ENT: hearing intact - Neck Neck: Present: supple, normal ROM - Respiratory Respiratory effort: normal Respiratory: bilateral: CTA - Cardiovascular Rhythm: regular Heart Sounds: Present: S1 & S2 Results - Labs CBC & Chem 7: 10/14/21 05:27 10/14/21 05:27 Labs: Abnormal lab results 10/13/21 10/14/21 10/14/21 Range/Units 07:47 05:27 05:27 RDW 15.4 H (13.2-15.2) % Lymph % (Auto) 50.7 H (13.4-35.0) % [place] % (Auto) 7.4 H (0.0-7.3) % Seg Neutrophils % 38.1 L (40.0-70.0) % Potassium 3.3 L (3.6-5.0) mmol/L Glucose 128 H (65-100) mg/dL Magnesium (1.7-2.3) mg/dL HDL Cholesterol 39 L (40-59) mg/dL 10/14/21 Range/Units 05:27 RDW (13.2-15.2) % Lymph % (Auto) (13.4-35.0) % [place] % (Auto) (0.0-7.3) % Seg Neutrophils % (40.0-70.0) % Potassium (3.6-5.0) mmol/L Glucose (65-100) mg/dL Magnesium 1.60 L (1.7-2.3) mg/dL HDL Cholesterol (40-59) mg/dL Assessment and Plan 55 y/o female with acute CVA s/p TPA, now post 24 hours of lytic therapy. 1. Follow up head ct official read from this am 2. Start oral antiplatelet therapy. 3. Follow up neurology recs 4. Stable for transfer out of ICU, will sign off once on floor.
--- NOTE | 2021-10-14 11:49 | Cat Scan Report ---
CT head/brain wo con INDICATION / CLINICAL INFORMATION: 55 years Female; 24 hr Post TPA. TECHNIQUE: Routine CT head without contrast. All CT scans at this location are performed using CT dos e reduction for ALARA by means of automated exposure control. COMPARISON: The study is compared to previous CT of 10/13/2021. FINDINGS: BRAIN / INTRACRANIAL CONTENTS: There is moderate cerebral white matter disease most consistent with m icrovascular angiopathy which involves the gangliocapsular regions. Additionally, there are chronic i schemic changes and infarcts involving left frontal lobe and right cerebellum. The findings correlate with the earlier CT of 10/13/2021. There is no clear evidence of acute intracranial hemorrhage or dev eloping mass effect. ORBITS: No significant abnormality of visualized orbits. SINUSES / MASTOIDS: No significant abnormality in the visualized paranasal sinuses or mastoid air maggie ls. CRANIOCERVICAL JUNCTION: No significant abnormality. ADDITIONAL FINDINGS: None. IMPRESSION: 1. There is continued microvascular angiopathy as detailed above without CT ends of acute intracrania l hemorrhage or significant overall change from 10/13/2021. Signer Name: Charles Garcia MD Signed: 10/14/2021 11:44 AM Workstation Name: [id number]
--- NOTE | 2021-10-14 11:57 | Progress Note ---
Assessment and Plan - Medical Decision Making 55-year-old female history of hypertension and previous Hx of CVA Patient has right-sided facial droop, right arm numbness, right leg weakness and aphasia. Patient initial stroke score is 10. Patient is initially hypertensive to the 180s systolic. Patient's last known normal was at 6:00 AM. Her symptoms were noted by family members at 640. Impression and Plan # New onset slurred speech and right side weakness 6.40 am -She is with Hx of CVA one year ago on ASA and Lipitor -she is smoker 7-8 Cigarets a day -Initial NIH#10 currently after TPA is #1 -CT brain is remarkable for remote right frontal and cerebellar infarct -CTA brain and neck is remarkable for Bilateral ICA distal stenosis -s/p TPA today -MRI brain is remarkable for left caudate infarct acute -LDL#68 -Echo is pending -A1C is pending -ST and Pt evaluation - restart ASA at 85 mg daily she can not atke full ASA it result in GI bleed !!! -cardiac Monitoring-- consider [facility]OT on d/c due to recurrent CVA .r/o AF and review echo and cardiology follow up #HTN -Allow for permissive HTN<180/110 for @4 hours -then gradual decrease to 150/80 # Smoking Hx -average 7-8 Cig daily-- stop smoking #HLP -restart lipitor at 40 mg daily -LDL is #68 # Recurrent CVA -suggest cardiac monitering -Echo with bubble study pending - US carotid <50% stenosis will follow Subjective Date of service: 10/14/21 Interval history: doing well speech improved as well as weakness MRI showed left caudate infarct LDl#68 echo is pending Objective - Vital Sign Vital Signs - 12hr 10/14/21 10/14/21 10/14/21 00:00 01:00 02:00 Temperature Pulse Rate [ 97 H From Monitor] Pulse Rate [ 91 H 70 90 Right Radial Artery] Respiratory 12 Rate Respiratory 12 10 L 12 Rate [Right Radial Artery] Blood Pressure 119/60 135/84 114/75 [Right Radial Artery] O2 Sat by Pulse 100 Oximetry O2 Sat by Pulse 100 100 100 Oximetry [ Right Radial Artery] 10/14/21 10/14/21 10/14/21 03:00 03:43 04:00 Temperature 97 F L Pulse Rate [ 103 H From Monitor] Pulse Rate [ 86 100 H Right Radial Artery] Respiratory 13 Rate Respiratory 14 13 Rate [Right Radial Artery] Blood Pressure 115/75 125/77 [Right Radial Artery] O2 Sat by Pulse 100 Oximetry O2 Sat by Pulse 100 100 Oximetry [ Right Radial Artery] 10/14/21 10/14/21 10/14/21 05:00 06:00 08:03 Temperature 97.4 F L Pulse Rate [ From Monitor] Pulse Rate [ 81 81 Right Radial Artery] Respiratory Rate Respiratory 12 12 Rate [Right Radial Artery] Blood Pressure 128/67 128/67 [Right Radial Artery] O2 Sat by Pulse Oximetry O2 Sat by Pulse 100 100 Oximetry [ Right Radial Artery] - General Apperance Constitutional: comfortable - EENT EENT: PERRL, mucous membranes moist - Respiratory Respiratory: lungs clear, rhonchi - Cardiovascular Cardiovascular: regular rate, normal S1, normal S2 Extremities: no peripheral edema bilat, no clubbing, cyanosis - Gastrointestinal Gastrointestinal: normoactive bowel sounds - Integumentary Integumentary: normal - Neurologic Cranial nerve examination: PERRL, intact Speech examination: intact Detailed motor examination: grossly full strength in - Laboratory Findings CBC and BMP: 10/14/21 05:27 10/14/21 05:27 Abnormal Lab Findings: Abnormal Labs 10/13/21 10/13/21 10/13/21 07:47 07:57 07:57 RDW 15.9 H Lymph % (Auto) 45.2 H [place] % (Auto) Seg Neutrophils % Potassium Glucose POC Glucose Magnesium Total Creatine Kinase 152 H HDL Cholesterol 39 L 10/13/21 10/14/21 10/14/21 08:07 05:27 05:27 RDW 15.4 H Lymph % (Auto) 50.7 H [place] % (Auto) 7.4 H Seg Neutrophils % 38.1 L Potassium 3.3 L Glucose 128 H POC Glucose 152 H Magnesium Total Creatine Kinase HDL Cholesterol 10/14/21 05:27 RDW Lymph % (Auto) [place] % (Auto) Seg Neutrophils % Potassium Glucose POC Glucose Magnesium 1.60 L Total Creatine Kinase HDL Cholesterol
[2021-10-14] MEDS ORDERED: diphenhydrAMINE 25 MG CAP PO ONE (12:00)
--- NOTE | 2021-10-14 13:07 | Discharge Summary ---
Providers - Providers Date of Admission: 10/13/21 10:51 Date of discharge: 10/14/21 Attending physician: ELBA ROCHA MD 10/13/21 10:23 Consult to Physician [CONS] Stat Comment: Consulting Provider: SUZAN DALE Physician Instructions: Reason For Exam: post tpa 10/13/21 10:47 Consult to Physician [CONS] Routine Comment: Consulting Provider: KALEB CLARK Physician Instructions: Reason For Exam: slurred speech, cva s/p tpa 10/13/21 10:54 Occupational Therapy Evaluate and Treat [CONS] Routine Comment: Reason For Exam: weakness, cva. Physical Therapy Evaluation and Treat [CONS] Routine Comment: Reason For Exam: weakness, cva. Speech Therapy Evaluation and Treat [CONS] Routine Reason For Exam: slurred speech, dysphagia eval Primary care physician: [employer] Hospitalization Condition: Stable Hospital course: This is a 55-year-old female with CVA (07/2021), HTN, HLD, "prediabetes", HIV positive with current nicotine abuse (half a pack per day smoker) who presented to the hospital on 10/13 with a new sudden onset of slurred speech, last known well 6 AM on 10/13 with approximate onset at 6:40 AM. Teleneurology was consulted in the emergency department and patient was deemed to be a candidate for TPA. Patient was admitted to ICU for 24-hour observation with consults to neurology and [facility]. Patient had a repeat CT head on 10/14 which did not show any acute infarct and patient will be discharged home on on aspirin. Physical therapy evaluated the patient and recommends outpatient physical therapy. Speech therapy evaluation completed. Patient passed bedside swallow evaluation with speech therapy recommended regular diet with thin liquids. Patient will need to follow-up with her primary care physician and outpatient neurologist within 1 to 2 weeks of discharge. She will need to continue outpatient physical therapy as recommended by the physical therapy team. Patient will need to continue all other maintenance medications. Assessment and plan Neuro: Acute CVA s/p TPA administration, h/o CVA (07/2021) -Neurology consulted, appreciate recommendations -Initial NIHSS 10 pre-TPA, NIHSS 1 post TPA -Initial CT head shows no acute intracranial abnormality, mild volume loss and chronic white matter changes, small chronic left subfrontal, right posterior frontal and right cerebellar infarcts -CT head is post TPA shows continued microvascular angiopathy without acute intracranial hemorrhage or significant overall change from 10/13/2021 -MRI brain shows tiny punctuate subacute lacunar infarction seen within the left caudate head, small region of encephalomalacia from a prior remote left caudate infarct, moderate sequela of chronic microvascular disease, small remote left frontal infarct, moderate right mastoid effusion -Echocardiogram shows LVEF 50 to 55%, mild diastolic dysfunction. Saline bubble contrast intravenous injection does not demonstrate PFO. RVSP 26 mmHg -Bilateral carotid Doppler ultrasound shows less than 50% diameter stenosis of the right and left internal carotid artery -CTA head shows mild segmental narrowing involving the transcranial intracerebral arteries, no clear CT evidence of large vessel occlusion involving intracranial vessels -CTA neck shows small focus of calcification involving the right carotid bifurcation, minimal calcification involving the aortic arch and arch vessels -Aspirin 81 mg daily -Continue risk modification with antihypertensives and diet -Continue Lipitor -PT/OT/ST consulted -PT recommends outpatient physical therapy -Follow-up with PCP and/or outpatient neurologist upon discharge -Patient recovered faster than anticipated and condition did not warrant further inpatient stay. Cardio: h/o hyperlipidemia and hypertension -Blood pressure monitor per primary care physician instructions -Resume home antihypertensive regimen -Continue statin Respiratory: Nicotine abuse -Smoking cessation education completed -Follow-up with PCP for smoking cessation aid GI: Obesity -Continue cardiac diet -Encouraged lifestyle and dietary modifications upon discharge : Hypokalemia, hypomagnesemia -Potassium 3.3, magnesium 1.6 -Replete with p.o. potassium and magnesium Endo: " Prediabetes" -Follow-up with primary care physician ID: HIV -Continue home antiretroviral therapy -Follow-up with HIV provider Disposition: 30 STILL A PATIENT Final Discharge Diagnosis (Prints w/discharge instructions): Acute CVA s/p TPA administration, Hypokalemia, hypomagnesemia Time spent for discharge: 60 Core Measure Documentation - Palliative Care Palliative Care/ Comfort Measures: Not Applicable - Core Measures Any of the following diagnoses?: stroke - Stroke Discharge Requirements Statin for LDL = or >70 mg/dl on DC: Yes Anticoag for atrial fib/atrial flutter: Not Applicable Antithrombotic for ischemic stroke: Yes Exam - Constitutional Vitals: Temp Pulse Resp BP Pulse Ox 97.6 F 81 12 128/67 100 10/14/21 12:12 10/14/21 06:00 10/14/21 06:00 10/14/21 06:00 10/14/21 08:15 General appearance: Present: no acute distress, obese - EENT Eyes: Present: PERRL, EOM intact - Neck Neck: Present: normal ROM - Cardiovascular Rhythm: regular Heart Sounds: Present: S1 & S2. Absent: systolic murmur, diastolic murmur - Extremities Extremities: no ischemia, pulses intact, pulses symmetrical, No edema, normal temperature, normal color, Full ROM Peripheral Pulses: within normal limits - Abdominal General gastrointestinal: Present: soft, non-tender, non-distended, normal bowel sounds - Integumentary Integumentary: Present: warm, dry - Psychiatric Psychiatric: cooperative - Neurologic Neurologic: CNII-XII intact, no focal deficits, moves all extremities - Allied Health Allied health notes reviewed: nursing, RT, social work Plan Activity: advance as tolerated Diet: low fat, low cholesterol, low salt Special Instructions: record daily BP diary, smoking cessation Additional Instructions: If you have worsening symptoms contact your primary care physician or present to the nearest emergency department. Follow-up with your primary care physician within 1 to 2 weeks of discharge. Continue your home medical maintenance regimen. Follow up with: PRIMARY CARE, [Primary Care Provider] - 3-5 Days Prescriptions: AtorvaSTATin [Lipitor] 80 mg PO QHS #30 tablet Aspirin [Aspirin BABY CHEW TAB] 81 mg PO QDAY #30 tab.chew
[2021-10-14] MEDS ORDERED: MAGNESIUM OXIDE 400 MG TAB PO ONE (14:00)
[2021-10-14 14:06] VITALS: BP 135/74
== END 2021-10-14 14:50 | disposition home or self-care (01) | DRG 62 ==
LOC: ED 07:27 → CC1 10:51
PROVIDERS: ADMIT Internal Medicine; ATTEND Internal Medicine
DX: I63.9 Cerebral infarction, unspecified (principal); G81.91 Hemiplegia, unspecified affecting right dominant side; B20 Human immunodeficiency virus [HIV] disease; I10 Essential (primary) hypertension; Z79.899 Other long term (current) drug therapy; F20.9 Schizophrenia, unspecified; B19.20 Unspecified viral hepatitis C without hepatic coma; E78.5 Hyperlipidemia, unspecified; R73.03 Prediabetes; F17.200 Nicotine dependence, unspecified, uncomplicated; Z71.6 Tobacco abuse counseling; E66.9 Obesity, unspecified; Z71.3 Dietary counseling and surveillance; E87.6 Hypokalemia; E83.42 Hypomagnesemia; Z91.013 Allergy to seafood; Z88.8 Allergy status to other drugs, medicaments and biological substances
CPT/HCPCS: 36415; 70450; 70496; 70498; 70551; 80048; 80061; 82550; 82553; 82962; 83735; 84484; 85025; 85610; 85670; 85730; 93005; 93306; 93880; 99406; G0378; C8929; J2060; J2997; J3475; Q9967

== ENCOUNTER 2022-03-29 07:41 | Outpatient (CLI) | payer MEDICARE ==
--- NOTE | 2022-03-29 08:11 | XRay Report ---
LEFT SHOULDER 3 VIEWS INDICATION: M75.42 IMPINGEMENT SYNDROME OF LEFT SHOULDER. COMPARISON: None. IMPRESSION: No acute osseous or soft tissue abnormality. No significant DJD. Signer Name: Amando Reynolds Jr, MD Signed: 03/29/2022 8:07 AM Workstation Name: [id number]
== END 2022-03-29 07:42 | disposition home or self-care (01) ==
LOC: XRAY 07:41
PROVIDERS: ATTEND Orthopaedic Surgery
DX: M25.512 Pain in left shoulder (principal); M75.42 Impingement syndrome of left shoulder